=== PATIENT | male | born 1955 | race African-American/Black ===

== ENCOUNTER 2016-11-15 10:59 | Inpatient (IN) | payer OTHER ==
[2016-11-15 12:44] VITALS: BMI 22.2
--- NOTE | 2016-11-15 15:21 | HP ---
Admission ROS [facility] Chief Complaint: REHAB TX FOR ALCOHOL DEPENDENCE. PT STATES DSS INSTRUCTED HIM TO SEEK DETOX BECAUSE HE TESTED POSITIVE FOR DRUGS --"MY URINE CAME UP DIRTY". Allergies/Adverse Reactions: Allergies Allergy/AdvReac Type Severity Reaction Status Date / Time No Known Allergies Allergy Verified 11/15/16 13:13 History of Present Illness: 61 Y/O AA/MALE WITH A HX OF ALCOHOL DEPENDENCE SEEKING REHAB TX. PT REPORTS WAS IN NURSING HOME AT [facility] BUT DEVELOPED PNUEMONIA AND TAKEN TO THE [facility] FOR TREATMENT FOR 4 WEEKS. REPORTS WAS DISCHARGED 2 WEEKS AGO. PT STATES HOMELESS AND RESIDES AT [facility]. Exam Limitations: No Limitations - Ebola screening Have you traveled outside of the country in the last 21 days: No Have you had contact with anyone from an Ebola affected area: No Have you been sick,other than usual withdrawal symptoms: No Do you have a fever: No - Review of Systems Constitutional: Changes in sleep EENT: reports: Blurred Vision (NO TEETH WITH NO DENTURES IN PLACE.), Tearing, Nose Congestion (SINUS PROBLEMS) Respiratory: reports: Shortness of Breath (HX BRONCHITIS--"THEY GIVE ME THE PUMP ".) Cardiac: reports: No Symptoms Reported GI: reports: Nausea, Other (HX BLEEDING HEMORRHOIDS) : reports: Dysuria Musculoskeletal: reports: Other (LEFT SHOULDER FX 10 YRS AGO) Integumentary: reports: Rash ("JOCK ITCH") Neuro: reports: Headache, Tremors Endocrine: reports: No Symptoms Reported Hematology: reports: No Symptoms Reported Psychiatric: reports: Orientated x3, Anxious, Depressed Other Systems: Reviewed and Negative Patient History - Patient Medical History Hx Anemia: No Hx Asthma: Yes (MDI) Hx Chronic Obstructive Pulmonary Disease (COPD): No Hx Cancer: No Hx Cardiac Disorders: No Hx Congestive Heart Failure: No Hx Hypertension: Yes (ON MEDS) Hx Hypercholesterolemia: Yes (ON ATORVASTATIN 40 MG DAILY) Hx Pacemaker: No HX Cerebrovascular Accident: No Hx Seizures: No Hx Dementia: No Hx Diabetes: No Hx Gastrointestinal Disorders: Yes (GERD-RANITIDINE ) Hx Liver Disease: No Hx Genitourinary Disorders: No Hx Sexually Transmitted Disorders: No (DENIES) Hx Renal Disease (ESRD): No Hx Thyroid Disease: No Hx Human Immunodeficiency Virus (HIV): No (NEGATIVE HX) Hx Hepatitis C: No Hx Depression: No Hx Suicide Attempt: No (DENIES) Hx Bipolar Disorder: No Hx Schizophrenia: No - Patient Surgical History Past Surgical History: Yes Hx Neurologic Surgery: No Hx Cataract Extraction: No Hx Cardiac Surgery: No Hx Lung Surgery: No Hx Breast Surgery: No Hx Breast Biopsy: No Hx Abdominal Surgery: No Hx Appendectomy: No Hx Cholecystectomy: No Hx Genitourinary Surgery: No Hx Orthopedic Surgery: Yes (Dislocation of lt. shoulder) Anesthesia Reaction: No - PPD History Previous Implant?: Yes Documented Results: Negative w/o proof Date: 09/26/13 Results: 0 mm PPD to be Administered?: Yes - Reproductive History Patient is a Female of Child Bearing Age (11 -55 yrs old): No (MALE) Patient : (N/A) - Smoking Cessation Smoking history: Former smoker Have you smoked in the past 12 months: No If you are a former smoker, when did you quit?: "10 YRS AGO WHEN I DID SHOULDER SX" Hx Chewing Tobacco Use: No Initiated information on smoking cessation: No - Substance & Tx. History Hx Alcohol Use: Yes (BEER) Hx Substance Use: Yes (COCAINE/MARIJUANA) Substance Use Type: Alcohol, Cocaine, Marijuana Hx Substance Use Treatment: Yes (BUT DOES NOT REMEMBER LAST PLACE) - Substances Abused Alcohol-beer Route: Oral Frequency: 1-2 times per week Amount used: 1-2 (12 oz.) Age of first use: 14 Date of Last Use: 11/15/16 Family Disease History - Family Disease History Family Disease History: Other: Father (), Mother () Admission Physical Exam [facility] - Vital Signs Vital Signs: Vital Signs - 24 hr 11/15/16 12:34 Temperature 95.4 F L Pulse Rate 57 L Respiratory 20 Rate Blood Pressure 119/72 - Physical General Appearance: Yes: No Apparent Distress, Other HEENTM: Yes: EOMI, Normocephalic, KAREL, Pharynx Normal, Photophobia, Nasal Congestion, Rhinorrhea Respiratory: Yes: Chest Non-Tender, Lungs Clear, Normal Breath Sounds, No Respiratory Distress Neck: Yes: No masses,lesions,Nodules, Supple, Trachea in good position Breast: Yes: Breast Exam Deferred Cardiology: Yes: Regular Rhythm, S1, S2, Bradycardia Abdominal: Yes: Normal Bowel Sounds, Non Tender, Soft Genitourinary: Yes: Other (N/C) Back: Yes: Within Normal Limits Musculoskeletal: Yes: full range of Motion, Gait Steady Extremities: Yes: Normal Range of Motion, Non-Tender Neurological: Yes: clinical trial leader II-XII NML intact, Fully Oriented, Alert Integumentary: Yes: Dry, Warm Lymphatic: Yes: Within Normal Limits - Diagnostic (1) Nicotine dependence Current Visit: Yes Status: Acute Qualifiers: Nicotine product type: cigarettes Substance use status: in withdrawal Qualified Code(s): F17.213 - Nicotine dependence, cigarettes, with withdrawal (2) Alcohol dependence with uncomplicated withdrawal Current Visit: Yes Status: Chronic (3) Cocaine dependence, uncomplicated Current Visit: Yes Status: Chronic (4) Cannabis dependence, uncomplicated Current Visit: Yes Status: Chronic (5) Hypertension Current Visit: Yes Status: Chronic Qualifiers: Hypertension type: essential hypertension Qualified Code(s): I10 - Essential (primary) hypertension (6) Asthma Current Visit: Yes Status: Chronic Qualifiers: Asthma severity: mild intermittent Asthma complication type: uncomplicated Qualified Code(s): J45.20 - Mild intermittent asthma, uncomplicated (7) GERD (gastroesophageal reflux disease) Current Visit: Yes Status: Chronic Qualifiers: Esophagitis presence: without esophagitis Qualified Code(s): K21.9 - Gastro-esophageal reflux disease without esophagitis Cleared for Admission [facility] - Detox or Rehab Claeared for Rehab Admission: Yes [facility] Breath Alcohol Content Breath Alcohol Content: 0.008 Urine Drug Screen - Results Drug Screen Negative: No Urine Drug Screen Results: THC-Marijuana, KIMBERLY-Cocaine, MET-Methamphetamine
[2016-11-15] MEDS ORDERED: MAGNESIUM CITRATE 300 ML BOTTLE PO PRN (15:57)
[2016-11-15] MEDS ORDERED: LOPERAMIDE HCL 2 MG CAPSULE PO PRN (15:57)
[2016-11-15] MEDS ORDERED: ALBUTEROL SO4 18 GM HFA INHALER IH PRN (15:59)
[2016-11-15] MEDS ORDERED: TUBERCULIN PPD 5 TU/0.1ML VIAL ID ONE (19:45)
[2016-11-15 21:03] LABS: URINE APPEARANCE CLEAR; URINE BILIRUBIN NEGATIVE (NEGATIVE); URINE BLOOD NEGATIVE (NEGATIVE); URINE COLOR LTYELLOW; URINE GLUCOSE (UA) NEGATIVE (NEGATIVE); URINE KETONE NEGATIVE (NEGATIVE); URINE LEUK ESTERASE NEGATIVE (NEGATIVE); URINE NITRITE NEGATIVE (NEGATIVE); URINE PROTEIN NEGATIVE (NEGATIVE); URINE UROBILINOGEN NEGATIVE mg/dL (0.2-1.0)
[2016-11-15] MEDS: guaiFENesin/D-METHORPHAN HB 10 ML UNIT-DOSE CUPS PO PRN (21:05)
[2016-11-15] MEDS: THIAMINE HCL 100 MG TABLET (FP) PO SCH (21:05)
[2016-11-15] MEDS: IBUPROFEN 400 MG TABLET (FP) PO PRN (21:06)
[2016-11-15] MEDS: TOLNAFTATE 1% CREAM 15 GM TUBE TP SCH (21:09)
[2016-11-15] MEDS: CARVEDILOL 12.5 MG TABLET (FP) PO SCH (21:09)
[2016-11-15] MEDS: HYDROCORTISONE 2.5% TOPICAL CREAM 30 GM TUBE TP SCH (21:09)
[2016-11-15] MEDS ORDERED: CARVEDILOL PO SCH (22:00)
[2016-11-15] MEDS ORDERED: ATORVASTATIN CA 40 MG TABLET (FP) PO SCH (22:00)
[2016-11-16] MEDS ORDERED: LORATADINE PO SCH (10:00)
[2016-11-16] MEDS ORDERED: HYDROCHLOROTHIAZIDE 12.5 MG CAPSULE (FP) PO SCH (10:00)
[2016-11-16] MEDS ORDERED: LORATADINE 10 MG TABLET PO SCH (10:00)
[2016-11-16] MEDS ORDERED: LISINOPRIL 5 MG PO SCH (10:00)
[2016-11-16] MEDS ORDERED: HYDROCHLOROTHIAZIDE PO SCH (10:00)
[2016-11-16] MEDS ORDERED: ASPIRIN 81 MG CHEWABLE TABLETS PO SCH (10:00)
[2016-11-16] MEDS ORDERED: LISINOPRIL 5 MG TABLET (FP) PO SCH (10:00)
[2016-11-16] MEDS: PRENATAL VITAMINS W/ FOLIC ACID TABLET (FP) PO SCH (10:15)
[2016-11-16] MEDS: HYDROCORTISONE 2.5% TOPICAL CREAM 30 GM TUBE TP SCH ×2 (10:16→22:35)
[2016-11-16] MEDS: TOLNAFTATE 1% CREAM 15 GM TUBE TP SCH ×2 (10:17→22:19)
[2016-11-16] MEDS: guaiFENesin/D-METHORPHAN HB 10 ML UNIT-DOSE CUPS PO PRN ×2 (10:20→22:25)
[2016-11-16] MEDS: MAG HYDROX/AL HYDROX/SIMETH 30 ML UNIT-DOSE CUP PO PRN ×2 (10:40→22:25)
[2016-11-16] MEDS: CARVEDILOL 12.5 MG TABLET (FP) PO SCH ×2 (11:00→22:15)
[2016-11-16] MEDS ORDERED: FLUOCINONIDE 0.05% CREAM (15 GM TUBE) TP SCH (14:00)
--- NOTE | 2016-11-16 15:12 | HP ---
Psychiatrist Admission - Data Date of interview: 11/16/16 Admission source: [facility] Identifying data: This is his first admission to [address] [place] [address] for this 61 years old AA single father of 1 grown daughter, undomiciled,supported by PA. Medical History: GERD,BA,HTN. Psychiatric History: denies Physical/Sexual Abuse/Trauma History: denies Vital Signs: Vital Signs - 24 hr 11/15/16 11/16/16 11/16/16 20:45 00:30 03:30 Temperature 99.3 F Pulse Rate 66 Respiratory 18 18 18 Rate Blood Pressure 127/75 11/16/16 11/16/16 07:00 10:15 Temperature 98.3 F Pulse Rate 67 71 Respiratory 18 Rate Blood Pressure 151/79 142/78 Allergies/Adverse Reactions: Allergies Allergy/AdvReac Type Severity Reaction Status Date / Time No Known Allergies Allergy Verified 11/15/16 13:13 Date of last physical exam: 11/15/16 Concur with the findings of this exam: Yes - Substance Abuse/Tx History Hx Alcohol Use: Yes (reports drinking since 22 yo,beer couple of bottles) Hx Substance Use: Yes (marijuana on and off since HS"just to help me to eat") Substance Use Type: Alcohol, Marijuana Hx Substance Use Treatment: Yes (1 year of inpatient in [facility] last year) - Admission Criteria Previous failed treatment: Yes Poor recovery environment: Yes Comorbidities: Yes Lacks judgement: Yes Mental Status Exam - Mental Status Exam Alert and Oriented to: Time, Place, Person Cognitive Function: Grossly Intact Patient Appearance: Unkempt Mood: Irritable Affect: Appropriate, Mood Congruent Patient Behavior: Cooperative Speech Pattern: Clear Voice Loudness: Normal Thought Process: Goal Oriented Thought Disorder: Not Present Hallucinations: Denies Suicidal Ideation: Denies Homicidal Ideation: Denies Insight/Judgement: Fair Sleep: Fair Appetite: Good Muscle strength/Tone: Normal Gait/Station: Normal Psychiatric Findings - Problem List (Ary 1, 2,3) (1) Nicotine dependence Current Visit: Yes Status: Chronic Qualifiers: Nicotine product type: cigarettes Substance use status: in withdrawal Qualified Code(s): F17.213 - Nicotine dependence, cigarettes, with withdrawal (2) Asthma Current Visit: Yes Status: Chronic Qualifiers: Asthma severity: mild intermittent Asthma complication type: uncomplicated Qualified Code(s): J45.20 - Mild intermittent asthma, uncomplicated (3) GERD (gastroesophageal reflux disease) Current Visit: Yes Status: Chronic Qualifiers: Esophagitis presence: without esophagitis Qualified Code(s): K21.9 - Gastro-esophageal reflux disease without esophagitis (4) Hypertension Current Visit: Yes Status: Chronic Qualifiers: Hypertension type: essential hypertension Qualified Code(s): I10 - Essential (primary) hypertension (5) Substance induced mood disorder Current Visit: Yes Status: Chronic (6) Alcohol dependence Current Visit: Yes Status: Chronic (7) Cocaine dependence Current Visit: Yes Status: Chronic (8) Cannabis dependence Current Visit: Yes Status: Chronic - Initial Treatment Plan Initial Treatment Plan: Will monitor progress.
[2016-11-16 15:33] LABS: MCH 24.2 pg (25.7-33.7); MCHC 32.4 g/dl (32.0-35.9); MEAN CELL VOLUME 74.7 fl (80-96); MEAN PLT VOLUME 8.4 fl (7.5-11.1); PLATELET COUNT 240 K/MM3 (134-434); RDW 15.4 % (11.9-15.9); WHITE BLOOD COUNT 3.4 K/mm3 (4.0-10.0)
[2016-11-16 16:04] LABS: ALBUMIN 4.1 g/dl (3.4-5.0); ANION GAP 7 (8-16); CALCIUM 8.9 mg/dL (8.5-10.1); CO2 30 mmol/L (21-32); GLUCOSE,RANDOM 132 mg/dL (74-106)
[2016-11-16 16:09] LABS: ALK PHOS 52 U/L (45-117); BILIRUBIN,TOTAL 1.2 mg/dL (0.2-1.0); CREATININE 1.2 mg/dL (0.7-1.3); SGOT/AST 27 U/L (15-37); SGPT/ALT 38 U/L (12-78); TOT PROT 7.5 g/dl (6.4-8.2)
[2016-11-16 16:55] LABS: SICKLE CELL SCREEN NEGATIVE (NEGATIVE)
[2016-11-16] MEDS ORDERED: PATIENT'S OWN MEDICATION (NON-FORMULARY) (Atorvastatin Ca [Lipitor] 40 MG) PO SCH (22:00)
[2016-11-16] MEDS: THIAMINE HCL 100 MG TABLET (FP) PO SCH (22:15)
[2016-11-16] MEDS: ARTIFICIAL TEARS (POLYVINYL ALCOHOL 1.4%) OPTH DROPS OU SCH (22:15)
[2016-11-16] MEDS: RANITIDINE HCL 150 MG TABLET (FP) PO SCH (22:15)
[2016-11-16] MEDS: ATORVASTATIN CA 40 MG TABLET (FP) PO SCH (22:16)
[2016-11-16] MEDS: diphenhydrAMINE HCL 50 MG CAPSULE PO PRN (22:17)
[2016-11-16] MEDS: IBUPROFEN 400 MG TABLET (FP) PO PRN (22:18)
[2016-11-17] MEDS: SPIRONOLACTONE 25 MG TABLET (FP) PO SCH (10:18)
[2016-11-17] MEDS: ASPIRIN COATED 81 MG TABLET.EC PO SCH (10:18)
[2016-11-17] MEDS: RANITIDINE HCL 150 MG TABLET (FP) PO SCH ×2 (10:18→21:32)
[2016-11-17] MEDS: ARTIFICIAL TEARS (POLYVINYL ALCOHOL 1.4%) OPTH DROPS OU SCH ×2 (10:18→21:32)
[2016-11-17] MEDS: HYDROCHLOROTHIAZIDE 12.5 MG CAPSULE (FP) PO SCH (10:18)
[2016-11-17] MEDS: CARVEDILOL 12.5 MG TABLET (FP) PO SCH ×2 (10:18→21:32)
[2016-11-17] MEDS: LORATADINE 10 MG TABLET PO SCH (10:18)
[2016-11-17] MEDS: HYDROCORTISONE 2.5% TOPICAL CREAM 30 GM TUBE TP SCH ×2 (10:19→21:36)
[2016-11-17] MEDS: LISINOPRIL 5 MG TABLET (FP) PO SCH (10:19)
[2016-11-17] MEDS: PRENATAL VITAMINS W/ FOLIC ACID TABLET (FP) PO SCH (10:19)
[2016-11-17] MEDS: TOLNAFTATE 1% CREAM 15 GM TUBE TP SCH ×2 (10:19→21:35)
[2016-11-17] MEDS: guaiFENesin/D-METHORPHAN HB 10 ML UNIT-DOSE CUPS PO PRN ×2 (10:22→21:31)
[2016-11-17] MEDS: ACETAMINOPHEN 325 MG TABLET (FP) PO PRN (10:22)
[2016-11-17] MEDS: IBUPROFEN 400 MG TABLET (FP) PO PRN (21:31)
[2016-11-17] MEDS: THIAMINE HCL 100 MG TABLET (FP) PO SCH (21:31)
[2016-11-17] MEDS: diphenhydrAMINE HCL 50 MG CAPSULE PO PRN ×2 (21:32→23:55)
[2016-11-17] MEDS: ATORVASTATIN CA 40 MG TABLET (FP) PO SCH (21:32)
[2016-11-17] MEDS: MAG HYDROX/AL HYDROX/SIMETH 30 ML UNIT-DOSE CUP PO PRN (21:34)
[2016-11-18] MEDS: PRENATAL VITAMINS W/ FOLIC ACID TABLET (FP) PO SCH (10:40)
[2016-11-18] MEDS: CARVEDILOL 12.5 MG TABLET (FP) PO SCH ×2 (10:40→21:47)
[2016-11-18] MEDS: RANITIDINE HCL 150 MG TABLET (FP) PO SCH ×2 (10:40→21:47)
[2016-11-18] MEDS: LORATADINE 10 MG TABLET PO SCH (10:41)
[2016-11-18] MEDS: SPIRONOLACTONE 25 MG TABLET (FP) PO SCH (10:41)
[2016-11-18] MEDS: ASPIRIN COATED 81 MG TABLET.EC PO SCH (10:41)
[2016-11-18] MEDS: ARTIFICIAL TEARS (POLYVINYL ALCOHOL 1.4%) OPTH DROPS OU SCH ×2 (10:41→21:48)
[2016-11-18] MEDS: LISINOPRIL 5 MG TABLET (FP) PO SCH (10:41)
[2016-11-18] MEDS: HYDROCHLOROTHIAZIDE 12.5 MG CAPSULE (FP) PO SCH (10:41)
[2016-11-18] MEDS: IBUPROFEN 400 MG TABLET (FP) PO PRN ×2 (10:43→21:51)
[2016-11-18] MEDS: guaiFENesin/D-METHORPHAN HB 10 ML UNIT-DOSE CUPS PO PRN (10:44)
[2016-11-18] MEDS: MAG HYDROX/AL HYDROX/SIMETH 30 ML UNIT-DOSE CUP PO PRN (10:46)
[2016-11-18] MEDS: MENTHOL/PHENOL 1 EACH UD MM PRN (10:47)
[2016-11-18] MEDS: HYDROCORTISONE 2.5% TOPICAL CREAM 30 GM TUBE TP SCH ×2 (10:47→21:51)
[2016-11-18] MEDS: TOLNAFTATE 1% CREAM 15 GM TUBE TP SCH ×2 (10:47→23:10)
--- NOTE | 2016-11-18 11:36 | EKG ---
Test Reason : Blood Pressure : / mmHG Vent. Rate : 057 BPM Atrial Rate : 057 BPM P-R Int : 200 ms QRS Dur : 156 ms QT Int : 460 ms P-R-T Axes : 077 -53 011 degrees QTc Int : 447 ms SINUS BRADYCARDIA POSSIBLE LEFT ATRIAL ENLARGEMENT LEFT BUNDLE BRANCH BLOCK ABNORMAL ECG NO PREVIOUS ECGS AVAILABLE Confirmed by CRUZ GOTTI, EMILI ([id number]) on 11/18/2016 11:36:11 AM Referred By: Festus Barth Confirmed By:EMILI ARROYO MD
[2016-11-18] MEDS: ATORVASTATIN CA 40 MG TABLET (FP) PO SCH (21:47)
[2016-11-18] MEDS: THIAMINE HCL 100 MG TABLET (FP) PO SCH (21:47)
[2016-11-18] MEDS: MAGNESIUM HYDROX 2400MG/30ML ORAL SUSPENSION 30 ML CUP PO PRN (21:49)
[2016-11-18] MEDS: diphenhydrAMINE HCL 50 MG CAPSULE PO PRN (21:50)
[2016-11-19] MEDS: LISINOPRIL 5 MG TABLET (FP) PO SCH (10:13)
[2016-11-19] MEDS: RANITIDINE HCL 150 MG TABLET (FP) PO SCH ×2 (10:13→21:52)
[2016-11-19] MEDS: TOLNAFTATE 1% CREAM 15 GM TUBE TP SCH ×2 (10:13→21:50)
[2016-11-19] MEDS: ASPIRIN COATED 81 MG TABLET.EC PO SCH (10:13)
[2016-11-19] MEDS: PRENATAL VITAMINS W/ FOLIC ACID TABLET (FP) PO SCH (10:13)
[2016-11-19] MEDS: SPIRONOLACTONE 25 MG TABLET (FP) PO SCH (10:13)
[2016-11-19] MEDS: ARTIFICIAL TEARS (POLYVINYL ALCOHOL 1.4%) OPTH DROPS OU SCH ×2 (10:14→21:51)
[2016-11-19] MEDS: LORATADINE 10 MG TABLET PO SCH (10:14)
[2016-11-19] MEDS: CARVEDILOL 12.5 MG TABLET (FP) PO SCH ×2 (10:14→21:50)
[2016-11-19] MEDS: HYDROCHLOROTHIAZIDE 12.5 MG CAPSULE (FP) PO SCH (10:14)
[2016-11-19] MEDS: HYDROCORTISONE 2.5% TOPICAL CREAM 30 GM TUBE TP SCH ×2 (10:15→21:50)
[2016-11-19] MEDS: guaiFENesin/D-METHORPHAN HB 10 ML UNIT-DOSE CUPS PO PRN (10:18)
[2016-11-19] MEDS: MAG HYDROX/AL HYDROX/SIMETH 30 ML UNIT-DOSE CUP PO PRN (10:20)
[2016-11-19] MEDS: MENTHOL/PHENOL 1 EACH UD MM PRN (10:20)
[2016-11-19] MEDS: IBUPROFEN 400 MG TABLET (FP) PO PRN (21:49)
[2016-11-19] MEDS: ATORVASTATIN CA 40 MG TABLET (FP) PO SCH (21:50)
[2016-11-19] MEDS: diphenhydrAMINE HCL 50 MG CAPSULE PO PRN ×2 (21:51→23:51)
[2016-11-19] MEDS: THIAMINE HCL 100 MG TABLET (FP) PO SCH (21:52)
[2016-11-20] MEDS: IBUPROFEN 400 MG TABLET (FP) PO PRN ×2 (10:33→21:38)
[2016-11-20] MEDS: guaiFENesin/D-METHORPHAN HB 10 ML UNIT-DOSE CUPS PO PRN ×2 (10:33→21:37)
[2016-11-20] MEDS: MAG HYDROX/AL HYDROX/SIMETH 30 ML UNIT-DOSE CUP PO PRN ×2 (10:33→21:41)
[2016-11-20] MEDS: RANITIDINE HCL 150 MG TABLET (FP) PO SCH ×2 (10:34→21:38)
[2016-11-20] MEDS: PRENATAL VITAMINS W/ FOLIC ACID TABLET (FP) PO SCH (10:34)
[2016-11-20] MEDS: SPIRONOLACTONE 25 MG TABLET (FP) PO SCH (10:34)
[2016-11-20] MEDS: LISINOPRIL 5 MG TABLET (FP) PO SCH (10:34)
[2016-11-20] MEDS: HYDROCHLOROTHIAZIDE 12.5 MG CAPSULE (FP) PO SCH (10:34)
[2016-11-20] MEDS: ASPIRIN COATED 81 MG TABLET.EC PO SCH (10:34)
[2016-11-20] MEDS: LORATADINE 10 MG TABLET PO SCH (10:34)
[2016-11-20] MEDS: MENTHOL/PHENOL 1 EACH UD MM PRN (10:37)
[2016-11-20] MEDS: ARTIFICIAL TEARS (POLYVINYL ALCOHOL 1.4%) OPTH DROPS OU SCH ×2 (10:38→21:37)
[2016-11-20] MEDS: HYDROCORTISONE 2.5% TOPICAL CREAM 30 GM TUBE TP SCH ×2 (10:38→21:37)
[2016-11-20] MEDS: TOLNAFTATE 1% CREAM 15 GM TUBE TP SCH ×2 (10:39→21:45)
[2016-11-20] MEDS: CARVEDILOL 12.5 MG TABLET (FP) PO SCH ×2 (10:39→21:38)
[2016-11-20] MEDS: THIAMINE HCL 100 MG TABLET (FP) PO SCH (21:37)
[2016-11-20] MEDS: ATORVASTATIN CA 40 MG TABLET (FP) PO SCH (21:39)
[2016-11-20] MEDS: diphenhydrAMINE HCL 50 MG CAPSULE PO PRN ×2 (21:39→23:19)
[2016-11-21] MEDS: LISINOPRIL 5 MG TABLET (FP) PO SCH (09:52)
[2016-11-21] MEDS: ASPIRIN COATED 81 MG TABLET.EC PO SCH (09:52)
[2016-11-21] MEDS: LORATADINE 10 MG TABLET PO SCH (09:52)
[2016-11-21] MEDS: PRENATAL VITAMINS W/ FOLIC ACID TABLET (FP) PO SCH (09:52)
[2016-11-21] MEDS: RANITIDINE HCL 150 MG TABLET (FP) PO SCH ×2 (09:52→21:43)
[2016-11-21] MEDS: CARVEDILOL 12.5 MG TABLET (FP) PO SCH ×2 (09:52→21:42)
[2016-11-21] MEDS: MENTHOL/PHENOL 1 EACH UD MM PRN (09:53)
[2016-11-21] MEDS: guaiFENesin/D-METHORPHAN HB 10 ML UNIT-DOSE CUPS PO PRN ×2 (09:53→21:40)
[2016-11-21] MEDS: SPIRONOLACTONE 25 MG TABLET (FP) PO SCH (09:53)
[2016-11-21] MEDS: MAG HYDROX/AL HYDROX/SIMETH 30 ML UNIT-DOSE CUP PO PRN ×2 (09:53→21:42)
[2016-11-21] MEDS: HYDROCHLOROTHIAZIDE 12.5 MG CAPSULE (FP) PO SCH (09:53)
[2016-11-21] MEDS: ARTIFICIAL TEARS (POLYVINYL ALCOHOL 1.4%) OPTH DROPS OU SCH ×2 (10:40→21:40)
[2016-11-21] MEDS: HYDROCORTISONE 2.5% TOPICAL CREAM 30 GM TUBE TP SCH ×2 (10:41→21:39)
[2016-11-21] MEDS: TOLNAFTATE 1% CREAM 15 GM TUBE TP SCH ×2 (10:41→21:42)
[2016-11-21] MEDS: IBUPROFEN 400 MG TABLET (FP) PO PRN (21:42)
[2016-11-21] MEDS: ATORVASTATIN CA 40 MG TABLET (FP) PO SCH (21:42)
[2016-11-21] MEDS: THIAMINE HCL 100 MG TABLET (FP) PO SCH (21:43)
[2016-11-21] MEDS: diphenhydrAMINE HCL 50 MG CAPSULE PO PRN (21:43)
[2016-11-22] MEDS ORDERED: PT OWN MED DRAWER 7, Y5N ONE ×2 (08:44→14:18)
[2016-11-22] MEDS: LORATADINE 10 MG TABLET PO SCH (09:52)
[2016-11-22] MEDS: HYDROCHLOROTHIAZIDE 12.5 MG CAPSULE (FP) PO SCH (09:52)
[2016-11-22] MEDS: PRENATAL VITAMINS W/ FOLIC ACID TABLET (FP) PO SCH (09:52)
[2016-11-22] MEDS: LISINOPRIL 5 MG TABLET (FP) PO SCH (09:52)
[2016-11-22] MEDS: ASPIRIN COATED 81 MG TABLET.EC PO SCH (09:52)
[2016-11-22] MEDS: RANITIDINE HCL 150 MG TABLET (FP) PO SCH ×2 (09:52→21:24)
[2016-11-22] MEDS: ARTIFICIAL TEARS (POLYVINYL ALCOHOL 1.4%) OPTH DROPS OU SCH ×2 (09:53→21:24)
[2016-11-22] MEDS: SPIRONOLACTONE 25 MG TABLET (FP) PO SCH (09:53)
[2016-11-22] MEDS: TOLNAFTATE 1% CREAM 15 GM TUBE TP SCH ×2 (09:53→21:22)
[2016-11-22] MEDS: HYDROCORTISONE 2.5% TOPICAL CREAM 30 GM TUBE TP SCH ×2 (09:53→21:22)
[2016-11-22] MEDS: CARVEDILOL 12.5 MG TABLET (FP) PO SCH ×2 (09:53→21:24)
[2016-11-22] MEDS: ACETAMINOPHEN 325 MG TABLET (FP) PO PRN (09:56)
[2016-11-22] MEDS: MAG HYDROX/AL HYDROX/SIMETH 30 ML UNIT-DOSE CUP PO PRN (21:24)
[2016-11-22] MEDS: THIAMINE HCL 100 MG TABLET (FP) PO SCH (21:24)
[2016-11-22] MEDS: diphenhydrAMINE HCL 50 MG CAPSULE PO PRN ×2 (21:24→23:24)
[2016-11-22] MEDS: ATORVASTATIN CA 40 MG TABLET (FP) PO SCH (21:24)
[2016-11-22] MEDS: IBUPROFEN 400 MG TABLET (FP) PO PRN (21:24)
[2016-11-22] MEDS: guaiFENesin/D-METHORPHAN HB 10 ML UNIT-DOSE CUPS PO PRN (21:24)
[2016-11-22] MEDS: MENTHOL/PHENOL 1 EACH UD MM PRN (21:26)
[2016-11-22] MEDS: P-EPHED 60MG/TRIPROLIDI 2.5MG TABLET PO PRN (21:26)
[2016-11-23] MEDS: TOLNAFTATE 1% CREAM 15 GM TUBE TP SCH ×2 (10:24→21:25)
[2016-11-23] MEDS: PRENATAL VITAMINS W/ FOLIC ACID TABLET (FP) PO SCH (10:26)
[2016-11-23] MEDS: ARTIFICIAL TEARS (POLYVINYL ALCOHOL 1.4%) OPTH DROPS OU SCH ×2 (10:26→21:25)
[2016-11-23] MEDS: HYDROCORTISONE 2.5% TOPICAL CREAM 30 GM TUBE TP SCH ×2 (10:26→21:26)
[2016-11-23] MEDS: LORATADINE 10 MG TABLET PO SCH (10:27)
[2016-11-23] MEDS: RANITIDINE HCL 150 MG TABLET (FP) PO SCH ×2 (10:27→21:24)
[2016-11-23] MEDS: ASPIRIN COATED 81 MG TABLET.EC PO SCH (10:27)
[2016-11-23] MEDS: LISINOPRIL 5 MG TABLET (FP) PO SCH (10:27)
[2016-11-23] MEDS: HYDROCHLOROTHIAZIDE 12.5 MG CAPSULE (FP) PO SCH (10:27)
[2016-11-23] MEDS: CARVEDILOL 12.5 MG TABLET (FP) PO SCH ×2 (10:27→21:24)
[2016-11-23] MEDS: SPIRONOLACTONE 25 MG TABLET (FP) PO SCH (10:27)
[2016-11-23] MEDS: ACETAMINOPHEN 325 MG TABLET (FP) PO PRN (10:29)
[2016-11-23] MEDS: THIAMINE HCL 100 MG TABLET (FP) PO SCH (21:24)
[2016-11-23] MEDS: ATORVASTATIN CA 40 MG TABLET (FP) PO SCH (21:24)
[2016-11-23] MEDS: IBUPROFEN 400 MG TABLET (FP) PO PRN (21:27)
[2016-11-24] MEDS: HYDROCORTISONE 2.5% TOPICAL CREAM 30 GM TUBE TP SCH ×2 (09:43→21:24)
[2016-11-24] MEDS: TOLNAFTATE 1% CREAM 15 GM TUBE TP SCH ×2 (09:43→21:24)
[2016-11-24] MEDS: ARTIFICIAL TEARS (POLYVINYL ALCOHOL 1.4%) OPTH DROPS OU SCH ×2 (09:43→21:24)
[2016-11-24] MEDS: HYDROCHLOROTHIAZIDE 12.5 MG CAPSULE (FP) PO SCH (09:44)
[2016-11-24] MEDS: SPIRONOLACTONE 25 MG TABLET (FP) PO SCH (09:44)
[2016-11-24] MEDS: LISINOPRIL 5 MG TABLET (FP) PO SCH (09:44)
[2016-11-24] MEDS: RANITIDINE HCL 150 MG TABLET (FP) PO SCH ×2 (09:44→21:26)
[2016-11-24] MEDS: LORATADINE 10 MG TABLET PO SCH (09:44)
[2016-11-24] MEDS: CARVEDILOL 12.5 MG TABLET (FP) PO SCH ×2 (09:44→21:26)
[2016-11-24] MEDS: PRENATAL VITAMINS W/ FOLIC ACID TABLET (FP) PO SCH (09:44)
[2016-11-24] MEDS: ASPIRIN COATED 81 MG TABLET.EC PO SCH (09:44)
[2016-11-24] MEDS: ACETAMINOPHEN 325 MG TABLET (FP) PO PRN (09:46)
[2016-11-24] MEDS: diphenhydrAMINE HCL 50 MG CAPSULE PO PRN ×2 (20:23→23:54)
[2016-11-24] MEDS: THIAMINE HCL 100 MG TABLET (FP) PO SCH (21:24)
[2016-11-24] MEDS: MAG HYDROX/AL HYDROX/SIMETH 30 ML UNIT-DOSE CUP PO PRN (21:25)
[2016-11-24] MEDS: guaiFENesin/D-METHORPHAN HB 10 ML UNIT-DOSE CUPS PO PRN (21:25)
[2016-11-24] MEDS: ATORVASTATIN CA 40 MG TABLET (FP) PO SCH (21:26)
[2016-11-24] MEDS: IBUPROFEN 400 MG TABLET (FP) PO PRN (21:26)
[2016-11-25] MEDS: PRENATAL VITAMINS W/ FOLIC ACID TABLET (FP) PO SCH (09:56)
[2016-11-25] MEDS: HYDROCHLOROTHIAZIDE 12.5 MG CAPSULE (FP) PO SCH (09:56)
[2016-11-25] MEDS: LISINOPRIL 5 MG TABLET (FP) PO SCH (09:56)
[2016-11-25] MEDS: ASPIRIN COATED 81 MG TABLET.EC PO SCH (09:56)
[2016-11-25] MEDS: LORATADINE 10 MG TABLET PO SCH (09:56)
[2016-11-25] MEDS: SPIRONOLACTONE 25 MG TABLET (FP) PO SCH (09:56)
[2016-11-25] MEDS: RANITIDINE HCL 150 MG TABLET (FP) PO SCH ×2 (09:56→21:48)
[2016-11-25] MEDS: CARVEDILOL 12.5 MG TABLET (FP) PO SCH ×2 (09:57→21:48)
[2016-11-25] MEDS: ARTIFICIAL TEARS (POLYVINYL ALCOHOL 1.4%) OPTH DROPS OU SCH ×2 (09:58→21:48)
[2016-11-25] MEDS: HYDROCORTISONE 2.5% TOPICAL CREAM 30 GM TUBE TP SCH ×2 (09:58→21:48)
[2016-11-25] MEDS: IBUPROFEN 400 MG TABLET (FP) PO PRN (10:00)
[2016-11-25] MEDS: MAG HYDROX/AL HYDROX/SIMETH 30 ML UNIT-DOSE CUP PO PRN (10:00)
[2016-11-25] MEDS: guaiFENesin/D-METHORPHAN HB 10 ML UNIT-DOSE CUPS PO PRN (10:00)
[2016-11-25] MEDS: MENTHOL/PHENOL 1 EACH UD MM PRN (10:05)
[2016-11-25] MEDS: TOLNAFTATE 1% CREAM 15 GM TUBE TP SCH ×2 (10:21→21:51)
[2016-11-25] MEDS: ATORVASTATIN CA 40 MG TABLET (FP) PO SCH (21:48)
[2016-11-25] MEDS: THIAMINE HCL 100 MG TABLET (FP) PO SCH (21:48)
[2016-11-25] MEDS: diphenhydrAMINE HCL 50 MG CAPSULE PO PRN (21:51)
[2016-11-25] MEDS: ACETAMINOPHEN 325 MG TABLET (FP) PO PRN (21:52)
[2016-11-26] MEDS: SPIRONOLACTONE 25 MG TABLET (FP) PO SCH (10:00)
[2016-11-26] MEDS: RANITIDINE HCL 150 MG TABLET (FP) PO SCH ×2 (10:00→21:28)
[2016-11-26] MEDS: LORATADINE 10 MG TABLET PO SCH (10:00)
[2016-11-26] MEDS: CARVEDILOL 12.5 MG TABLET (FP) PO SCH ×2 (10:01→21:28)
[2016-11-26] MEDS: MENTHOL/PHENOL 1 EACH UD MM PRN ×2 (10:01→21:33)
[2016-11-26] MEDS: PRENATAL VITAMINS W/ FOLIC ACID TABLET (FP) PO SCH (10:01)
[2016-11-26] MEDS: ASPIRIN COATED 81 MG TABLET.EC PO SCH (10:01)
[2016-11-26] MEDS: HYDROCHLOROTHIAZIDE 12.5 MG CAPSULE (FP) PO SCH (10:01)
[2016-11-26] MEDS: IBUPROFEN 400 MG TABLET (FP) PO PRN ×2 (10:01→21:28)
[2016-11-26] MEDS: MAG HYDROX/AL HYDROX/SIMETH 30 ML UNIT-DOSE CUP PO PRN ×2 (10:01→21:27)
[2016-11-26] MEDS: guaiFENesin/D-METHORPHAN HB 10 ML UNIT-DOSE CUPS PO PRN ×2 (10:01→21:27)
[2016-11-26] MEDS: LISINOPRIL 5 MG TABLET (FP) PO SCH (10:01)
[2016-11-26] MEDS: ARTIFICIAL TEARS (POLYVINYL ALCOHOL 1.4%) OPTH DROPS OU SCH ×2 (10:04→21:27)
[2016-11-26] MEDS: TOLNAFTATE 1% CREAM 15 GM TUBE TP SCH ×2 (10:04→21:33)
[2016-11-26] MEDS: HYDROCORTISONE 2.5% TOPICAL CREAM 30 GM TUBE TP SCH ×2 (10:04→21:27)
[2016-11-26] MEDS: THIAMINE HCL 100 MG TABLET (FP) PO SCH (21:27)
[2016-11-26] MEDS: ATORVASTATIN CA 40 MG TABLET (FP) PO SCH (21:28)
[2016-11-26] MEDS: diphenhydrAMINE HCL 50 MG CAPSULE PO PRN ×2 (21:28→23:48)
[2016-11-26] MEDS: P-EPHED 60MG/TRIPROLIDI 2.5MG TABLET PO PRN (21:33)
[2016-11-27] MEDS: CARVEDILOL 12.5 MG TABLET (FP) PO SCH ×2 (09:55→21:56)
[2016-11-27] MEDS: HYDROCORTISONE 2.5% TOPICAL CREAM 30 GM TUBE TP SCH ×2 (09:55→21:57)
[2016-11-27] MEDS: SPIRONOLACTONE 25 MG TABLET (FP) PO SCH (09:55)
[2016-11-27] MEDS: ASPIRIN COATED 81 MG TABLET.EC PO SCH (09:55)
[2016-11-27] MEDS: ARTIFICIAL TEARS (POLYVINYL ALCOHOL 1.4%) OPTH DROPS OU SCH ×2 (09:55→21:56)
[2016-11-27] MEDS: HYDROCHLOROTHIAZIDE 12.5 MG CAPSULE (FP) PO SCH (09:55)
[2016-11-27] MEDS: TOLNAFTATE 1% CREAM 15 GM TUBE TP SCH ×2 (09:55→21:57)
[2016-11-27] MEDS: RANITIDINE HCL 150 MG TABLET (FP) PO SCH ×2 (09:55→21:56)
[2016-11-27] MEDS: LISINOPRIL 5 MG TABLET (FP) PO SCH (09:55)
[2016-11-27] MEDS: LORATADINE 10 MG TABLET PO SCH (09:55)
[2016-11-27] MEDS: ACETAMINOPHEN 325 MG TABLET (FP) PO PRN (09:56)
[2016-11-27] MEDS: PRENATAL VITAMINS W/ FOLIC ACID TABLET (FP) PO SCH (09:56)
[2016-11-27] MEDS: guaiFENesin/D-METHORPHAN HB 10 ML UNIT-DOSE CUPS PO PRN ×2 (09:56→22:01)
[2016-11-27] MEDS: MAG HYDROX/AL HYDROX/SIMETH 30 ML UNIT-DOSE CUP PO PRN ×2 (10:00→22:02)
[2016-11-27] MEDS: MENTHOL/PHENOL 1 EACH UD MM PRN ×2 (10:00→21:59)
[2016-11-27] MEDS: ATORVASTATIN CA 40 MG TABLET (FP) PO SCH (21:56)
[2016-11-27] MEDS: THIAMINE HCL 100 MG TABLET (FP) PO SCH (21:56)
[2016-11-27] MEDS: diphenhydrAMINE HCL 50 MG CAPSULE PO PRN (21:59)
[2016-11-27] MEDS: IBUPROFEN 400 MG TABLET (FP) PO PRN (21:59)
[2016-11-28] MEDS: diphenhydrAMINE HCL 50 MG CAPSULE PO PRN ×2 (00:19→21:52)
[2016-11-28] MEDS: HYDROCORTISONE 2.5% TOPICAL CREAM 30 GM TUBE TP SCH ×2 (10:02→21:49)
[2016-11-28] MEDS: LISINOPRIL 5 MG TABLET (FP) PO SCH (10:02)
[2016-11-28] MEDS: HYDROCHLOROTHIAZIDE 12.5 MG CAPSULE (FP) PO SCH (10:02)
[2016-11-28] MEDS: ARTIFICIAL TEARS (POLYVINYL ALCOHOL 1.4%) OPTH DROPS OU SCH ×2 (10:02→21:48)
[2016-11-28] MEDS: SPIRONOLACTONE 25 MG TABLET (FP) PO SCH (10:02)
[2016-11-28] MEDS: RANITIDINE HCL 150 MG TABLET (FP) PO SCH ×2 (10:02→21:48)
[2016-11-28] MEDS: TOLNAFTATE 1% CREAM 15 GM TUBE TP SCH ×2 (10:02→21:48)
[2016-11-28] MEDS: ASPIRIN COATED 81 MG TABLET.EC PO SCH (10:02)
[2016-11-28] MEDS: CARVEDILOL 12.5 MG TABLET (FP) PO SCH ×2 (10:02→21:48)
[2016-11-28] MEDS: PRENATAL VITAMINS W/ FOLIC ACID TABLET (FP) PO SCH (10:02)
[2016-11-28] MEDS: LORATADINE 10 MG TABLET PO SCH (10:02)
[2016-11-28] MEDS: MAG HYDROX/AL HYDROX/SIMETH 30 ML UNIT-DOSE CUP PO PRN ×2 (10:04→21:52)
[2016-11-28] MEDS: ACETAMINOPHEN 325 MG TABLET (FP) PO PRN (10:04)
[2016-11-28] MEDS: guaiFENesin/D-METHORPHAN HB 10 ML UNIT-DOSE CUPS PO PRN (10:05)
[2016-11-28] MEDS: MENTHOL/PHENOL 1 EACH UD MM PRN ×2 (10:07→21:53)
[2016-11-28] MEDS: THIAMINE HCL 100 MG TABLET (FP) PO SCH (21:48)
[2016-11-28] MEDS: ATORVASTATIN CA 40 MG TABLET (FP) PO SCH (21:48)
[2016-11-28] MEDS: P-EPHED 60MG/TRIPROLIDI 2.5MG TABLET PO PRN (21:51)
[2016-11-28] MEDS: IBUPROFEN 400 MG TABLET (FP) PO PRN (21:52)
[2016-11-29] MEDS: LISINOPRIL 5 MG TABLET (FP) PO SCH (10:10)
[2016-11-29] MEDS: HYDROCHLOROTHIAZIDE 12.5 MG CAPSULE (FP) PO SCH (10:11)
[2016-11-29] MEDS: LORATADINE 10 MG TABLET PO SCH (10:11)
[2016-11-29] MEDS: CARVEDILOL 12.5 MG TABLET (FP) PO SCH ×2 (10:11→21:41)
[2016-11-29] MEDS: RANITIDINE HCL 150 MG TABLET (FP) PO SCH ×2 (10:11→21:41)
[2016-11-29] MEDS: IBUPROFEN 400 MG TABLET (FP) PO PRN ×2 (10:11→21:40)
[2016-11-29] MEDS: PRENATAL VITAMINS W/ FOLIC ACID TABLET (FP) PO SCH (10:11)
[2016-11-29] MEDS: SPIRONOLACTONE 25 MG TABLET (FP) PO SCH (10:11)
[2016-11-29] MEDS: ASPIRIN COATED 81 MG TABLET.EC PO SCH (10:11)
[2016-11-29] MEDS: MAG HYDROX/AL HYDROX/SIMETH 30 ML UNIT-DOSE CUP PO PRN ×2 (10:12→21:40)
[2016-11-29] MEDS: ARTIFICIAL TEARS (POLYVINYL ALCOHOL 1.4%) OPTH DROPS OU SCH ×2 (10:12→21:39)
[2016-11-29] MEDS: MENTHOL/PHENOL 1 EACH UD MM PRN (10:12)
[2016-11-29] MEDS: guaiFENesin/D-METHORPHAN HB 10 ML UNIT-DOSE CUPS PO PRN ×2 (10:12→21:40)
[2016-11-29] MEDS: HYDROCORTISONE 2.5% TOPICAL CREAM 30 GM TUBE TP SCH ×2 (10:13→21:40)
[2016-11-29] MEDS: TOLNAFTATE 1% CREAM 15 GM TUBE TP SCH ×2 (10:13→21:40)
[2016-11-29] MEDS: THIAMINE HCL 100 MG TABLET (FP) PO SCH (21:39)
[2016-11-29] MEDS: diphenhydrAMINE HCL 50 MG CAPSULE PO PRN ×2 (21:41→23:50)
[2016-11-29] MEDS: ATORVASTATIN CA 40 MG TABLET (FP) PO SCH (21:41)
[2016-11-30] MEDS: MAG HYDROX/AL HYDROX/SIMETH 30 ML UNIT-DOSE CUP PO PRN ×2 (10:16→21:44)
[2016-11-30] MEDS: guaiFENesin/D-METHORPHAN HB 10 ML UNIT-DOSE CUPS PO PRN (10:16)
[2016-11-30] MEDS: ARTIFICIAL TEARS (POLYVINYL ALCOHOL 1.4%) OPTH DROPS OU SCH ×2 (10:16→21:43)
[2016-11-30] MEDS: LORATADINE 10 MG TABLET PO SCH (10:17)
[2016-11-30] MEDS: IBUPROFEN 400 MG TABLET (FP) PO PRN ×2 (10:17→21:47)
[2016-11-30] MEDS: RANITIDINE HCL 150 MG TABLET (FP) PO SCH ×2 (10:17→21:51)
[2016-11-30] MEDS: LISINOPRIL 5 MG TABLET (FP) PO SCH (10:17)
[2016-11-30] MEDS: PRENATAL VITAMINS W/ FOLIC ACID TABLET (FP) PO SCH (10:17)
[2016-11-30] MEDS: CARVEDILOL 12.5 MG TABLET (FP) PO SCH ×2 (10:17→21:47)
[2016-11-30] MEDS: HYDROCHLOROTHIAZIDE 12.5 MG CAPSULE (FP) PO SCH (10:17)
[2016-11-30] MEDS: SPIRONOLACTONE 25 MG TABLET (FP) PO SCH (10:17)
[2016-11-30] MEDS: ASPIRIN COATED 81 MG TABLET.EC PO SCH (10:17)
[2016-11-30] MEDS: HYDROCORTISONE 2.5% TOPICAL CREAM 30 GM TUBE TP SCH ×2 (10:20→21:45)
[2016-11-30] MEDS: TOLNAFTATE 1% CREAM 15 GM TUBE TP SCH ×2 (10:20→21:46)
[2016-11-30] MEDS: MENTHOL/PHENOL 1 EACH UD MM PRN ×2 (10:20→21:47)
[2016-11-30] MEDS: HYDROCORTISONE ACETATE 25 MG/SUPP.RECT RC SCH (21:45)
[2016-11-30] MEDS: P-EPHED 60MG/TRIPROLIDI 2.5MG TABLET PO PRN (21:46)
[2016-11-30] MEDS: diphenhydrAMINE HCL 50 MG CAPSULE PO PRN (21:46)
[2016-11-30] MEDS: ATORVASTATIN CA 40 MG TABLET (FP) PO SCH (21:47)
[2016-11-30] MEDS: THIAMINE HCL 100 MG TABLET (FP) PO SCH (21:51)
[2016-11-30] MEDS: TOLNAFTATE 1% POWDER 45 GM POW TP SCH (21:53)
[2016-12-01] MEDS: HYDROCHLOROTHIAZIDE 12.5 MG CAPSULE (FP) PO SCH (10:18)
[2016-12-01] MEDS: LISINOPRIL 5 MG TABLET (FP) PO SCH (10:18)
[2016-12-01] MEDS: CARVEDILOL 12.5 MG TABLET (FP) PO SCH ×2 (10:18→21:46)
[2016-12-01] MEDS: PRENATAL VITAMINS W/ FOLIC ACID TABLET (FP) PO SCH (10:18)
[2016-12-01] MEDS: ASPIRIN COATED 81 MG TABLET.EC PO SCH (10:18)
[2016-12-01] MEDS: SPIRONOLACTONE 25 MG TABLET (FP) PO SCH (10:18)
[2016-12-01] MEDS: RANITIDINE HCL 150 MG TABLET (FP) PO SCH ×2 (10:18→21:46)
[2016-12-01] MEDS: LORATADINE 10 MG TABLET PO SCH (10:18)
[2016-12-01] MEDS: MENTHOL/PHENOL 1 EACH UD MM PRN (10:19)
[2016-12-01] MEDS: guaiFENesin/D-METHORPHAN HB 10 ML UNIT-DOSE CUPS PO PRN ×2 (10:19→21:45)
[2016-12-01] MEDS: ARTIFICIAL TEARS (POLYVINYL ALCOHOL 1.4%) OPTH DROPS OU SCH ×2 (10:19→21:45)
[2016-12-01] MEDS: IBUPROFEN 400 MG TABLET (FP) PO PRN ×2 (10:19→21:45)
[2016-12-01] MEDS: MAG HYDROX/AL HYDROX/SIMETH 30 ML UNIT-DOSE CUP PO PRN ×2 (10:19→21:45)
[2016-12-01] MEDS: TOLNAFTATE 1% CREAM 15 GM TUBE TP SCH ×2 (10:22→21:44)
[2016-12-01] MEDS: TOLNAFTATE 1% POWDER 45 GM POW TP SCH ×2 (10:22→21:44)
[2016-12-01] MEDS: HYDROCORTISONE 2.5% TOPICAL CREAM 30 GM TUBE TP SCH ×2 (10:56→21:43)
[2016-12-01] MEDS: ATORVASTATIN CA 40 MG TABLET (FP) PO SCH (21:45)
[2016-12-01] MEDS: HYDROCORTISONE ACETATE 25 MG/SUPP.RECT RC SCH (21:45)
[2016-12-01] MEDS: diphenhydrAMINE HCL 50 MG CAPSULE PO PRN (21:47)
[2016-12-01] MEDS: THIAMINE HCL 100 MG TABLET (FP) PO SCH (21:50)
[2016-12-02] MEDS: LISINOPRIL 5 MG TABLET (FP) PO SCH (10:31)
[2016-12-02] MEDS: ASPIRIN COATED 81 MG TABLET.EC PO SCH (10:31)
[2016-12-02] MEDS: HYDROCHLOROTHIAZIDE 12.5 MG CAPSULE (FP) PO SCH (10:31)
[2016-12-02] MEDS: RANITIDINE HCL 150 MG TABLET (FP) PO SCH ×2 (10:31→21:39)
[2016-12-02] MEDS: LORATADINE 10 MG TABLET PO SCH (10:31)
[2016-12-02] MEDS: CARVEDILOL 12.5 MG TABLET (FP) PO SCH ×2 (10:31→21:39)
[2016-12-02] MEDS: SPIRONOLACTONE 25 MG TABLET (FP) PO SCH (10:31)
[2016-12-02] MEDS: IBUPROFEN 400 MG TABLET (FP) PO PRN (10:31)
[2016-12-02] MEDS: PRENATAL VITAMINS W/ FOLIC ACID TABLET (FP) PO SCH (10:32)
[2016-12-02] MEDS: TOLNAFTATE 1% POWDER 45 GM POW TP SCH ×2 (10:32→21:37)
[2016-12-02] MEDS: MAG HYDROX/AL HYDROX/SIMETH 30 ML UNIT-DOSE CUP PO PRN ×2 (10:33→22:39)
[2016-12-02] MEDS: guaiFENesin/D-METHORPHAN HB 10 ML UNIT-DOSE CUPS PO PRN ×2 (10:33→22:39)
[2016-12-02] MEDS: ARTIFICIAL TEARS (POLYVINYL ALCOHOL 1.4%) OPTH DROPS OU SCH ×2 (10:33→21:37)
[2016-12-02] MEDS: TOLNAFTATE 1% CREAM 15 GM TUBE TP SCH ×2 (10:36→21:42)
[2016-12-02] MEDS: HYDROCORTISONE 2.5% TOPICAL CREAM 30 GM TUBE TP SCH ×2 (10:36→21:36)
[2016-12-02] MEDS: THIAMINE HCL 100 MG TABLET (FP) PO SCH (21:39)
[2016-12-02] MEDS: HYDROCORTISONE ACETATE 25 MG/SUPP.RECT RC SCH (21:39)
[2016-12-02] MEDS: ATORVASTATIN CA 40 MG TABLET (FP) PO SCH (21:39)
[2016-12-02] MEDS: ACETAMINOPHEN 325 MG TABLET (FP) PO PRN (21:40)
[2016-12-02] MEDS: MENTHOL/PHENOL 1 EACH UD MM PRN (22:40)
[2016-12-03] MEDS ORDERED: PT OWN MED DRAWER 7, Y5N ONE ×4 (10:25→22:15)
[2016-12-03] MEDS: CARVEDILOL 12.5 MG TABLET (FP) PO SCH ×2 (10:26→22:00)
[2016-12-03] MEDS: PRENATAL VITAMINS W/ FOLIC ACID TABLET (FP) PO SCH (10:26)
[2016-12-03] MEDS: HYDROCHLOROTHIAZIDE 12.5 MG CAPSULE (FP) PO SCH (10:26)
[2016-12-03] MEDS: TOLNAFTATE 1% POWDER 45 GM POW TP SCH ×2 (10:26→22:00)
[2016-12-03] MEDS: SPIRONOLACTONE 25 MG TABLET (FP) PO SCH (10:26)
[2016-12-03] MEDS: ASPIRIN COATED 81 MG TABLET.EC PO SCH (10:26)
[2016-12-03] MEDS: LISINOPRIL 5 MG TABLET (FP) PO SCH (10:26)
[2016-12-03] MEDS: guaiFENesin/D-METHORPHAN HB 10 ML UNIT-DOSE CUPS PO PRN (10:26)
[2016-12-03] MEDS: RANITIDINE HCL 150 MG TABLET (FP) PO SCH ×2 (10:26→22:00)
[2016-12-03] MEDS: LORATADINE 10 MG TABLET PO SCH (10:26)
[2016-12-03] MEDS: MAG HYDROX/AL HYDROX/SIMETH 30 ML UNIT-DOSE CUP PO PRN ×2 (10:26→22:05)
[2016-12-03] MEDS: ARTIFICIAL TEARS (POLYVINYL ALCOHOL 1.4%) OPTH DROPS OU SCH ×2 (10:26→21:59)
[2016-12-03] MEDS: HYDROCORTISONE 2.5% TOPICAL CREAM 30 GM TUBE TP SCH ×2 (10:26→21:59)
[2016-12-03] MEDS: TOLNAFTATE 1% CREAM 15 GM TUBE TP SCH ×2 (10:27→21:59)
[2016-12-03] MEDS: ACETAMINOPHEN 325 MG TABLET (FP) PO PRN (10:27)
[2016-12-03] MEDS: ATORVASTATIN CA 40 MG TABLET (FP) PO SCH (22:00)
[2016-12-03] MEDS: HYDROCORTISONE ACETATE 25 MG/SUPP.RECT RC SCH (22:00)
[2016-12-03] MEDS: THIAMINE HCL 100 MG TABLET (FP) PO SCH (22:00)
[2016-12-03] MEDS: IBUPROFEN 400 MG TABLET (FP) PO PRN (22:05)
[2016-12-03] MEDS: diphenhydrAMINE HCL 50 MG CAPSULE PO PRN ×2 (22:07→23:57)
[2016-12-04] MEDS: CARVEDILOL 12.5 MG TABLET (FP) PO SCH ×2 (10:51→21:53)
[2016-12-04] MEDS: RANITIDINE HCL 150 MG TABLET (FP) PO SCH ×2 (10:51→21:54)
[2016-12-04] MEDS: LISINOPRIL 5 MG TABLET (FP) PO SCH (10:51)
[2016-12-04] MEDS: IBUPROFEN 400 MG TABLET (FP) PO PRN ×2 (10:51→21:54)
[2016-12-04] MEDS: PRENATAL VITAMINS W/ FOLIC ACID TABLET (FP) PO SCH (10:51)
[2016-12-04] MEDS: HYDROCHLOROTHIAZIDE 12.5 MG CAPSULE (FP) PO SCH (10:51)
[2016-12-04] MEDS: ASPIRIN COATED 81 MG TABLET.EC PO SCH (10:52)
[2016-12-04] MEDS: SPIRONOLACTONE 25 MG TABLET (FP) PO SCH (10:52)
[2016-12-04] MEDS: LORATADINE 10 MG TABLET PO SCH (10:52)
[2016-12-04] MEDS: HYDROCORTISONE 2.5% TOPICAL CREAM 30 GM TUBE TP SCH ×2 (10:53→21:53)
[2016-12-04] MEDS: ARTIFICIAL TEARS (POLYVINYL ALCOHOL 1.4%) OPTH DROPS OU SCH ×2 (10:53→21:58)
[2016-12-04] MEDS: TOLNAFTATE 1% CREAM 15 GM TUBE TP SCH ×2 (10:53→21:52)
[2016-12-04] MEDS ORDERED: PT OWN MED DRAWER 7, Y5N ONE (10:54)
[2016-12-04] MEDS: TOLNAFTATE 1% POWDER 45 GM POW TP SCH ×2 (10:54→21:52)
[2016-12-04] MEDS: MAG HYDROX/AL HYDROX/SIMETH 30 ML UNIT-DOSE CUP PO PRN ×2 (10:54→21:53)
[2016-12-04] MEDS: guaiFENesin/D-METHORPHAN HB 10 ML UNIT-DOSE CUPS PO PRN ×2 (10:54→21:53)
[2016-12-04] MEDS: P-EPHED 60MG/TRIPROLIDI 2.5MG TABLET PO PRN (21:53)
[2016-12-04] MEDS: THIAMINE HCL 100 MG TABLET (FP) PO SCH (21:53)
[2016-12-04] MEDS: diphenhydrAMINE HCL 50 MG CAPSULE PO PRN (21:53)
[2016-12-04] MEDS: ATORVASTATIN CA 40 MG TABLET (FP) PO SCH (21:54)
[2016-12-04] MEDS: HYDROCORTISONE ACETATE 25 MG/SUPP.RECT RC SCH (21:58)
[2016-12-05] MEDS ORDERED: PT OWN MED DRAWER 7, Y5N ONE ×2 (08:50→10:23)
[2016-12-05] MEDS: HYDROCHLOROTHIAZIDE 12.5 MG CAPSULE (FP) PO SCH (10:21)
[2016-12-05] MEDS: LISINOPRIL 5 MG TABLET (FP) PO SCH (10:21)
[2016-12-05] MEDS: PRENATAL VITAMINS W/ FOLIC ACID TABLET (FP) PO SCH (10:21)
[2016-12-05] MEDS: HYDROCORTISONE 2.5% TOPICAL CREAM 30 GM TUBE TP SCH ×2 (10:22→21:28)
[2016-12-05] MEDS: LORATADINE 10 MG TABLET PO SCH (10:22)
[2016-12-05] MEDS: SPIRONOLACTONE 25 MG TABLET (FP) PO SCH (10:22)
[2016-12-05] MEDS: TOLNAFTATE 1% CREAM 15 GM TUBE TP SCH ×2 (10:22→21:29)
[2016-12-05] MEDS: TOLNAFTATE 1% POWDER 45 GM POW TP SCH ×2 (10:22→21:29)
[2016-12-05] MEDS: guaiFENesin/D-METHORPHAN HB 10 ML UNIT-DOSE CUPS PO PRN ×2 (10:22→21:25)
[2016-12-05] MEDS: RANITIDINE HCL 150 MG TABLET (FP) PO SCH ×2 (10:22→21:26)
[2016-12-05] MEDS: CARVEDILOL 12.5 MG TABLET (FP) PO SCH ×2 (10:22→21:25)
[2016-12-05] MEDS: ACETAMINOPHEN 325 MG TABLET (FP) PO PRN (10:23)
[2016-12-05] MEDS: ASPIRIN COATED 81 MG TABLET.EC PO SCH (10:23)
[2016-12-05] MEDS: ARTIFICIAL TEARS (POLYVINYL ALCOHOL 1.4%) OPTH DROPS OU SCH ×2 (10:24→21:28)
[2016-12-05] MEDS: MAG HYDROX/AL HYDROX/SIMETH 30 ML UNIT-DOSE CUP PO PRN (21:25)
[2016-12-05] MEDS: diphenhydrAMINE HCL 50 MG CAPSULE PO PRN (21:25)
[2016-12-05] MEDS: THIAMINE HCL 100 MG TABLET (FP) PO SCH (21:25)
[2016-12-05] MEDS: ATORVASTATIN CA 40 MG TABLET (FP) PO SCH (21:26)
[2016-12-05] MEDS: IBUPROFEN 400 MG TABLET (FP) PO PRN (21:26)
[2016-12-05] MEDS: HYDROCORTISONE ACETATE 25 MG/SUPP.RECT RC SCH (21:28)
[2016-12-06] MEDS ORDERED: PT OWN MED DRAWER 7, Y5N ONE ×2 (08:55→20:46)
[2016-12-06] MEDS: TOLNAFTATE 1% CREAM 15 GM TUBE TP SCH ×2 (10:17→21:41)
[2016-12-06] MEDS: SPIRONOLACTONE 25 MG TABLET (FP) PO SCH (10:17)
[2016-12-06] MEDS: CARVEDILOL 12.5 MG TABLET (FP) PO SCH ×2 (10:17→21:44)
[2016-12-06] MEDS: HYDROCHLOROTHIAZIDE 12.5 MG CAPSULE (FP) PO SCH (10:17)
[2016-12-06] MEDS: RANITIDINE HCL 150 MG TABLET (FP) PO SCH ×2 (10:17→21:44)
[2016-12-06] MEDS: PRENATAL VITAMINS W/ FOLIC ACID TABLET (FP) PO SCH (10:17)
[2016-12-06] MEDS: ASPIRIN COATED 81 MG TABLET.EC PO SCH (10:17)
[2016-12-06] MEDS: LORATADINE 10 MG TABLET PO SCH (10:17)
[2016-12-06] MEDS: guaiFENesin/D-METHORPHAN HB 10 ML UNIT-DOSE CUPS PO PRN ×2 (10:17→21:42)
[2016-12-06] MEDS: ARTIFICIAL TEARS (POLYVINYL ALCOHOL 1.4%) OPTH DROPS OU SCH ×2 (10:17→21:42)
[2016-12-06] MEDS: LISINOPRIL 5 MG TABLET (FP) PO SCH (10:17)
[2016-12-06] MEDS: ACETAMINOPHEN 325 MG TABLET (FP) PO PRN (10:18)
[2016-12-06] MEDS: TOLNAFTATE 1% POWDER 45 GM POW TP SCH ×2 (10:18→21:42)
[2016-12-06] MEDS: HYDROCORTISONE 2.5% TOPICAL CREAM 30 GM TUBE TP SCH ×2 (10:18→21:41)
--- NOTE | 2016-12-06 10:37 | PN ---
Psychiatric Progress Note Vital Signs: Vital Signs Period Temp Pulse Resp BP Sys/Fontenot Pulse Ox Last 24 Hr 98.4 F 61-66 16-18 116-130/64-82 Date of Session: 12/06/16 Chief Complaint:: Insomnia HPI: Patient addressing Alcohol, Cocaine and Cannabis Dependence comorbid with Nicotine Dependence and Substance-Induced Mood Disorder ROS: Asthma, GERD, HTN Current Medications: Active Medications Generic Name Dose Route Start Last Admin Trade Name Freq PRN Reason Stop Dose Admin Acetaminophen 650 mg 11/15/16 15:57 12/06/16 10:18 Tylenol - PO 650 mg Q4H PRN Administration PAIN Al Hydroxide/Mg Hydroxide 30 ml 11/15/16 15:57 12/05/16 21:25 Mylanta Oral Suspension - PO 30 ml Q6H PRN Administration DYSPEPSIA Albuterol Sulfate 2 puff 11/15/16 15:59 Ventolin Hfa Inhaler - IH Q4H PRN ASTHMA Artificial Tears 1 drop 11/16/16 22:00 12/06/16 10:17 Artificial Tears OU Not Given BID MENDEZ Aspirin 81 mg 11/16/16 14:39 12/06/16 10:17 Ecotrin - PO 81 mg DAILY MENDEZ Administration Atorvastatin Calcium 40 mg 11/16/16 14:38 12/05/16 21:26 Lipitor - PO 40 mg HS MENDEZ Administration Carvedilol 12.5 mg 11/16/16 14:35 12/06/16 10:17 Coreg - PO 12.5 mg BID MENDEZ Administration Diphenhydramine HCl 50 mg 11/15/16 15:57 12/05/16 21:25 Benadryl - PO 50 mg HSMR1 PRN Administration INSOMNIA Eucalyptus/Menthol/Phenol/Sorbitol 1 each 11/15/16 15:57 12/02/16 22:40 Cepastat Lozenge - MM 1 each Q4H PRN Administration SORE THROAT Guaifenesin 10 ml 11/15/16 15:57 12/06/16 10:17 Robitussin Dm - PO 10 ml Q6H PRN Administration COUGH Hydrochlorothiazide 12.5 mg 11/16/16 14:33 12/06/16 10:17 Hctz - PO 12.5 mg DAILY MENDEZ Administration Hydrocortisone 1 applic 11/15/16 22:00 12/06/16 10:18 Anusol 2.5% Hc Cream - TP Not Given BID MENDEZ Hydrocortisone Acetate 25 mg 11/30/16 22:00 12/05/16 21:28 Anusol Hc Suppository - RC 25 mg HS MENDEZ Administration Ibuprofen 400 mg 11/15/16 15:57 12/05/16 21:26 Motrin - PO 400 mg Q6H PRN Administration SEVERE PAIN Lisinopril 5 mg 11/16/16 14:34 12/06/16 10:17 Prinivil PO 5 mg DAILY MENDEZ Administration Loperamide HCl 4 mg 11/15/16 15:57 Imodium - PO Q6H PRN DIARRHEA Loratadine 10 mg 11/16/16 14:36 12/06/16 10:17 Claritin - PO 10 mg DAILY MENDEZ Administration Magnesium Citrate 300 ml 11/15/16 15:57 Citroma - PO Q48H PRN CONSTIPATION Magnesium Hydroxide 30 ml 11/15/16 15:57 11/18/16 21:49 Milk Of Magnesia - PO 30 ml DAILY PRN Administration CONSTIPATION Multivit/Folic Acid/Iron 1 tab 11/16/16 10:00 12/06/16 10:17 Vitamins (Sjr) - PO 1 tab DAILY MENDEZ Administration Pseudoephedrine/Triprolidine 1 combo 11/15/16 15:57 12/04/16 21:53 Actifed - PO 1 combo TID PRN Administration NASAL CONGESTION Ranitidine HCl 150 mg 11/16/16 22:00 12/06/16 10:17 Zantac - PO 150 mg BID MENDEZ Administration Spironolactone 25 mg 11/17/16 10:00 12/06/16 10:17 Aldactone - PO 25 mg DAILY MENDEZ Administration Thiamine HCl 100 mg 11/15/16 22:00 12/05/16 21:25 Vitamin B1 - PO 100 mg HS MENDEZ Administration Tolnaftate 1 applic 11/15/16 22:00 12/06/16 10:17 Tinactin 1% Cream - TP 1 applic BID MENDEZ Administration Tolnaftate 1 applic 11/30/16 22:00 12/06/16 10:18 Tinactin 1% Powder - TP 1 applic BID MENDEZ Administration Medication(s) Change(s): Start Belsomra 10 mg po HS prn for insomnia Current Side Effect: No Lab tests ordered: Yes Lab tests reviewed: Yes Provider note:: Patient reports experiencing difficulty to sleep. Reports that he has been sleeping poorly in part because his roomate snores too loud. He was told to inquire from nusing staff about the poosibility to relocate to another room. Hypnotic and adverse-effects of Belsomra discussed with patient and he agreed to try it Total face to face time:: 25 Mental Status Exam - Mental Status Exam Alert and Oriented to: Time, Place, Person Cognitive Function: Fair Mood: Hopeful, Euthymic Affect: Appropriate Patient Behavior: Cooperative Speech Pattern: Clear Voice Loudness: Normal Thought Process: Intact, Goal Oriented Thought Disorder: Not Present Hallucinations: Denies Suicidal Ideation: Denies Homicidal Ideation: Denies Insight/Judgement: Fair Sleep: Poorly Appetite: Good Muscle strength/Tone: Normal Gait/Station: Normal Psychiatric Treatment Plan - Problem List (1) Alcohol dependence Current Visit: Yes (2) Cocaine dependence Current Visit: Yes (3) Cannabis dependence Current Visit: Yes (4) Nicotine dependence Current Visit: Yes Qualifiers: Nicotine product type: cigarettes Substance use status: in withdrawal Qualified Code(s): F17.213 - Nicotine dependence, cigarettes, with withdrawal (5) Substance induced mood disorder Current Visit: Yes (6) Asthma Current Visit: Yes Qualifiers: Asthma severity: mild intermittent Asthma complication type: uncomplicated Qualified Code(s): J45.20 - Mild intermittent asthma, uncomplicated (7) GERD (gastroesophageal reflux disease) Current Visit: Yes Qualifiers: Esophagitis presence: without esophagitis Qualified Code(s): K21.9 - Gastro-esophageal reflux disease without esophagitis (8) Hypertension Current Visit: Yes Qualifiers: Hypertension type: essential hypertension Qualified Code(s): I10 - Essential (primary) hypertension Initial treatment plan: 1) Start Belsomra 10 mg po HS prn for insomnia. 2) Monitor progress
[2016-12-06] MEDS: MAG HYDROX/AL HYDROX/SIMETH 30 ML UNIT-DOSE CUP PO PRN (21:43)
[2016-12-06] MEDS: HYDROCORTISONE ACETATE 25 MG/SUPP.RECT RC SCH (21:43)
[2016-12-06] MEDS: IBUPROFEN 400 MG TABLET (FP) PO PRN (21:43)
[2016-12-06] MEDS: ATORVASTATIN CA 40 MG TABLET (FP) PO SCH (21:44)
[2016-12-06] MEDS: diphenhydrAMINE HCL 50 MG CAPSULE PO PRN (21:44)
[2016-12-06] MEDS: SUVOREXANT 10 MG TABLET PO PRN (21:45)
[2016-12-06] MEDS: P-EPHED 60MG/TRIPROLIDI 2.5MG TABLET PO PRN (21:47)
[2016-12-06] MEDS: MENTHOL/PHENOL 1 EACH UD MM PRN (21:47)
[2016-12-06] MEDS: THIAMINE HCL 100 MG TABLET (FP) PO SCH (21:49)
[2016-12-07] MEDS: PRENATAL VITAMINS W/ FOLIC ACID TABLET (FP) PO SCH (10:30)
[2016-12-07] MEDS: HYDROCHLOROTHIAZIDE 12.5 MG CAPSULE (FP) PO SCH (10:30)
[2016-12-07] MEDS: RANITIDINE HCL 150 MG TABLET (FP) PO SCH ×2 (10:30→22:14)
[2016-12-07] MEDS: SPIRONOLACTONE 25 MG TABLET (FP) PO SCH (10:30)
[2016-12-07] MEDS: MAG HYDROX/AL HYDROX/SIMETH 30 ML UNIT-DOSE CUP PO PRN ×2 (10:30→22:20)
[2016-12-07] MEDS: ASPIRIN COATED 81 MG TABLET.EC PO SCH (10:30)
[2016-12-07] MEDS: CARVEDILOL 12.5 MG TABLET (FP) PO SCH ×2 (10:30→22:13)
[2016-12-07] MEDS: guaiFENesin/D-METHORPHAN HB 10 ML UNIT-DOSE CUPS PO PRN (10:30)
[2016-12-07] MEDS: LISINOPRIL 5 MG TABLET (FP) PO SCH (10:30)
[2016-12-07] MEDS: ARTIFICIAL TEARS (POLYVINYL ALCOHOL 1.4%) OPTH DROPS OU SCH ×2 (10:31→22:40)
[2016-12-07] MEDS: TOLNAFTATE 1% CREAM 15 GM TUBE TP SCH ×2 (10:31→22:15)
[2016-12-07] MEDS: HYDROCORTISONE 2.5% TOPICAL CREAM 30 GM TUBE TP SCH ×2 (10:31→22:15)
[2016-12-07] MEDS: TOLNAFTATE 1% POWDER 45 GM POW TP SCH ×2 (10:31→22:40)
[2016-12-07] MEDS: LORATADINE 10 MG TABLET PO SCH (10:38)
[2016-12-07] MEDS: THIAMINE HCL 100 MG TABLET (FP) PO SCH (22:13)
[2016-12-07] MEDS: ATORVASTATIN CA 40 MG TABLET (FP) PO SCH (22:14)
[2016-12-07] MEDS: SUVOREXANT 10 MG TABLET PO PRN (22:16)
[2016-12-07] MEDS: diphenhydrAMINE HCL 50 MG CAPSULE PO PRN (22:17)
[2016-12-07] MEDS ORDERED: PT OWN MED DRAWER 7, Y5N ONE (22:22)
[2016-12-07] MEDS: MENTHOL/PHENOL 1 EACH UD MM PRN (22:24)
[2016-12-07] MEDS: HYDROCORTISONE ACETATE 25 MG/SUPP.RECT RC SCH (22:40)
[2016-12-08] MEDS ORDERED: PT OWN MED DRAWER 7, Y5N ONE ×3 (09:13→21:46)
[2016-12-08] MEDS: TOLNAFTATE 1% CREAM 15 GM TUBE TP SCH ×2 (10:26→21:46)
[2016-12-08] MEDS: HYDROCORTISONE 2.5% TOPICAL CREAM 30 GM TUBE TP SCH ×2 (10:26→21:46)
[2016-12-08] MEDS: PRENATAL VITAMINS W/ FOLIC ACID TABLET (FP) PO SCH (10:26)
[2016-12-08] MEDS: guaiFENesin/D-METHORPHAN HB 10 ML UNIT-DOSE CUPS PO PRN ×2 (10:26→21:47)
[2016-12-08] MEDS: TOLNAFTATE 1% POWDER 45 GM POW TP SCH ×2 (10:26→21:46)
[2016-12-08] MEDS: LISINOPRIL 5 MG TABLET (FP) PO SCH (10:27)
[2016-12-08] MEDS: SPIRONOLACTONE 25 MG TABLET (FP) PO SCH (10:27)
[2016-12-08] MEDS: ARTIFICIAL TEARS (POLYVINYL ALCOHOL 1.4%) OPTH DROPS OU SCH ×2 (10:27→22:53)
[2016-12-08] MEDS: HYDROCHLOROTHIAZIDE 12.5 MG CAPSULE (FP) PO SCH (10:27)
[2016-12-08] MEDS: RANITIDINE HCL 150 MG TABLET (FP) PO SCH ×2 (10:27→21:47)
[2016-12-08] MEDS: CARVEDILOL 12.5 MG TABLET (FP) PO SCH ×2 (10:27→21:47)
[2016-12-08] MEDS: LORATADINE 10 MG TABLET PO SCH (10:27)
[2016-12-08] MEDS: ACETAMINOPHEN 325 MG TABLET (FP) PO PRN (10:27)
[2016-12-08] MEDS: ASPIRIN COATED 81 MG TABLET.EC PO SCH (10:27)
[2016-12-08] MEDS: MENTHOL/PHENOL 1 EACH UD MM PRN (10:28)
[2016-12-08] MEDS: HYDROCORTISONE ACETATE 25 MG/SUPP.RECT RC SCH (21:47)
[2016-12-08] MEDS: MAG HYDROX/AL HYDROX/SIMETH 30 ML UNIT-DOSE CUP PO PRN (21:47)
[2016-12-08] MEDS: THIAMINE HCL 100 MG TABLET (FP) PO SCH (21:47)
[2016-12-08] MEDS: ATORVASTATIN CA 40 MG TABLET (FP) PO SCH (21:47)
[2016-12-08] MEDS: diphenhydrAMINE HCL 50 MG CAPSULE PO PRN (21:47)
[2016-12-08] MEDS: IBUPROFEN 400 MG TABLET (FP) PO PRN (21:48)
[2016-12-08] MEDS: SUVOREXANT 10 MG TABLET PO PRN (21:48)
[2016-12-09] MEDS: RANITIDINE HCL 150 MG TABLET (FP) PO SCH ×2 (10:15→21:30)
[2016-12-09] MEDS: LISINOPRIL 5 MG TABLET (FP) PO SCH (10:15)
[2016-12-09] MEDS: LORATADINE 10 MG TABLET PO SCH (10:15)
[2016-12-09] MEDS: IBUPROFEN 400 MG TABLET (FP) PO PRN (10:15)
[2016-12-09] MEDS: ASPIRIN COATED 81 MG TABLET.EC PO SCH (10:15)
[2016-12-09] MEDS: HYDROCHLOROTHIAZIDE 12.5 MG CAPSULE (FP) PO SCH (10:15)
[2016-12-09] MEDS: SPIRONOLACTONE 25 MG TABLET (FP) PO SCH (10:15)
[2016-12-09] MEDS: HYDROCORTISONE 2.5% TOPICAL CREAM 30 GM TUBE TP SCH ×2 (10:16→21:31)
[2016-12-09] MEDS: TOLNAFTATE 1% CREAM 15 GM TUBE TP SCH ×2 (10:16→21:31)
[2016-12-09] MEDS: TOLNAFTATE 1% POWDER 45 GM POW TP SCH ×2 (10:16→21:34)
[2016-12-09] MEDS: PRENATAL VITAMINS W/ FOLIC ACID TABLET (FP) PO SCH (10:16)
[2016-12-09] MEDS: guaiFENesin/D-METHORPHAN HB 10 ML UNIT-DOSE CUPS PO PRN (10:16)
[2016-12-09] MEDS: MAG HYDROX/AL HYDROX/SIMETH 30 ML UNIT-DOSE CUP PO PRN (10:16)
[2016-12-09] MEDS: CARVEDILOL 12.5 MG TABLET (FP) PO SCH ×2 (10:17→21:31)
[2016-12-09] MEDS: ARTIFICIAL TEARS (POLYVINYL ALCOHOL 1.4%) OPTH DROPS OU SCH ×2 (10:21→23:00)
[2016-12-09] MEDS: ATORVASTATIN CA 40 MG TABLET (FP) PO SCH (21:30)
[2016-12-09] MEDS: THIAMINE HCL 100 MG TABLET (FP) PO SCH (21:30)
[2016-12-09] MEDS: HYDROCORTISONE ACETATE 25 MG/SUPP.RECT RC SCH (21:32)
[2016-12-09] MEDS: SUVOREXANT 10 MG TABLET PO PRN (21:32)
[2016-12-10] MEDS: CARVEDILOL 12.5 MG TABLET (FP) PO SCH ×2 (10:14→21:32)
[2016-12-10] MEDS: LISINOPRIL 5 MG TABLET (FP) PO SCH (10:14)
[2016-12-10] MEDS: PRENATAL VITAMINS W/ FOLIC ACID TABLET (FP) PO SCH (10:14)
[2016-12-10] MEDS: SPIRONOLACTONE 25 MG TABLET (FP) PO SCH (10:15)
[2016-12-10] MEDS: IBUPROFEN 400 MG TABLET (FP) PO PRN (10:15)
[2016-12-10] MEDS: HYDROCHLOROTHIAZIDE 12.5 MG CAPSULE (FP) PO SCH (10:15)
[2016-12-10] MEDS: RANITIDINE HCL 150 MG TABLET (FP) PO SCH ×2 (10:15→21:32)
[2016-12-10] MEDS: ARTIFICIAL TEARS (POLYVINYL ALCOHOL 1.4%) OPTH DROPS OU SCH ×2 (10:15→22:25)
[2016-12-10] MEDS: LORATADINE 10 MG TABLET PO SCH (10:15)
[2016-12-10] MEDS: MAG HYDROX/AL HYDROX/SIMETH 30 ML UNIT-DOSE CUP PO PRN ×3 (10:15→22:48)
[2016-12-10] MEDS: ASPIRIN COATED 81 MG TABLET.EC PO SCH (10:15)
[2016-12-10] MEDS: guaiFENesin/D-METHORPHAN HB 10 ML UNIT-DOSE CUPS PO PRN ×2 (10:15→22:46)
[2016-12-10] MEDS: TOLNAFTATE 1% POWDER 45 GM POW TP SCH ×2 (10:16→22:25)
[2016-12-10] MEDS: HYDROCORTISONE 2.5% TOPICAL CREAM 30 GM TUBE TP SCH ×2 (10:16→22:25)
[2016-12-10] MEDS: TOLNAFTATE 1% CREAM 15 GM TUBE TP SCH ×2 (10:16→22:25)
[2016-12-10] MEDS: THIAMINE HCL 100 MG TABLET (FP) PO SCH (21:32)
[2016-12-10] MEDS: ATORVASTATIN CA 40 MG TABLET (FP) PO SCH (21:32)
[2016-12-10] MEDS: MAGNESIUM HYDROX 2400MG/30ML ORAL SUSPENSION 30 ML CUP PO PRN (21:34)
[2016-12-10] MEDS: diphenhydrAMINE HCL 50 MG CAPSULE PO PRN (21:35)
[2016-12-10] MEDS: HYDROCORTISONE ACETATE 25 MG/SUPP.RECT RC SCH (21:36)
[2016-12-10] MEDS: MENTHOL/PHENOL 1 EACH UD MM PRN (21:38)
[2016-12-11] MEDS: TOLNAFTATE 1% CREAM 15 GM TUBE TP SCH ×2 (09:52→22:05)
[2016-12-11] MEDS: HYDROCORTISONE 2.5% TOPICAL CREAM 30 GM TUBE TP SCH ×2 (09:52→22:03)
[2016-12-11] MEDS: RANITIDINE HCL 150 MG TABLET (FP) PO SCH ×2 (09:53→21:54)
[2016-12-11] MEDS: LISINOPRIL 5 MG TABLET (FP) PO SCH (09:53)
[2016-12-11] MEDS: ARTIFICIAL TEARS (POLYVINYL ALCOHOL 1.4%) OPTH DROPS OU SCH ×2 (09:53→21:56)
[2016-12-11] MEDS: PRENATAL VITAMINS W/ FOLIC ACID TABLET (FP) PO SCH (09:53)
[2016-12-11] MEDS: HYDROCHLOROTHIAZIDE 12.5 MG CAPSULE (FP) PO SCH (09:53)
[2016-12-11] MEDS: SPIRONOLACTONE 25 MG TABLET (FP) PO SCH (09:53)
[2016-12-11] MEDS: ASPIRIN COATED 81 MG TABLET.EC PO SCH (09:53)
[2016-12-11] MEDS: LORATADINE 10 MG TABLET PO SCH (09:53)
[2016-12-11] MEDS: CARVEDILOL 12.5 MG TABLET (FP) PO SCH ×2 (09:53→21:54)
[2016-12-11] MEDS: TOLNAFTATE 1% POWDER 45 GM POW TP SCH ×2 (09:54→22:05)
[2016-12-11] MEDS: MAG HYDROX/AL HYDROX/SIMETH 30 ML UNIT-DOSE CUP PO PRN (09:56)
[2016-12-11] MEDS: MENTHOL/PHENOL 1 EACH UD MM PRN (09:57)
[2016-12-11] MEDS: guaiFENesin/D-METHORPHAN HB 10 ML UNIT-DOSE CUPS PO PRN ×2 (09:58→21:59)
[2016-12-11] MEDS: ATORVASTATIN CA 40 MG TABLET (FP) PO SCH (21:54)
[2016-12-11] MEDS: diphenhydrAMINE HCL 50 MG CAPSULE PO PRN (21:54)
[2016-12-11] MEDS: THIAMINE HCL 100 MG TABLET (FP) PO SCH (21:54)
[2016-12-11] MEDS: MAGNESIUM HYDROX 2400MG/30ML ORAL SUSPENSION 30 ML CUP PO PRN (21:59)
[2016-12-11] MEDS: HYDROCORTISONE ACETATE 25 MG/SUPP.RECT RC SCH (22:04)
[2016-12-12] MEDS: diphenhydrAMINE HCL 50 MG CAPSULE PO PRN ×2 (00:22→22:05)
[2016-12-12 07:29] VITALS: TEMP 98.4
[2016-12-12] MEDS: HYDROCORTISONE 2.5% TOPICAL CREAM 30 GM TUBE TP SCH ×2 (10:17→22:06)
[2016-12-12] MEDS: LORATADINE 10 MG TABLET PO SCH (10:17)
[2016-12-12] MEDS: TOLNAFTATE 1% POWDER 45 GM POW TP SCH ×2 (10:17→22:06)
[2016-12-12] MEDS: CARVEDILOL 12.5 MG TABLET (FP) PO SCH ×2 (10:17→22:06)
[2016-12-12] MEDS: LISINOPRIL 5 MG TABLET (FP) PO SCH (10:17)
[2016-12-12] MEDS: ARTIFICIAL TEARS (POLYVINYL ALCOHOL 1.4%) OPTH DROPS OU SCH ×2 (10:17→22:06)
[2016-12-12] MEDS: RANITIDINE HCL 150 MG TABLET (FP) PO SCH ×2 (10:17→22:06)
[2016-12-12] MEDS: ASPIRIN COATED 81 MG TABLET.EC PO SCH (10:17)
[2016-12-12] MEDS: PRENATAL VITAMINS W/ FOLIC ACID TABLET (FP) PO SCH (10:17)
[2016-12-12] MEDS: HYDROCHLOROTHIAZIDE 12.5 MG CAPSULE (FP) PO SCH (10:17)
[2016-12-12] MEDS: SPIRONOLACTONE 25 MG TABLET (FP) PO SCH (10:19)
[2016-12-12] MEDS: MENTHOL/PHENOL 1 EACH UD MM PRN (10:20)
[2016-12-12] MEDS: guaiFENesin/D-METHORPHAN HB 10 ML UNIT-DOSE CUPS PO PRN ×2 (10:20→22:11)
[2016-12-12] MEDS: MAG HYDROX/AL HYDROX/SIMETH 30 ML UNIT-DOSE CUP PO PRN ×2 (10:20→22:12)
[2016-12-12] MEDS ORDERED: PT OWN MED DRAWER 7, Y5N ONE (10:25)
[2016-12-12] MEDS: TOLNAFTATE 1% CREAM 15 GM TUBE TP SCH ×2 (11:08→22:12)
--- NOTE | 2016-12-12 13:58 | PN ---
Psychiatric Progress Note Vital Signs: Vital Signs Period Temp Pulse Resp BP Sys/Fontenot Pulse Ox Last 24 Hr 98.4 F 71-86 16-18 120-142/71-80 Date of Session: 12/12/16 Chief Complaint:: Discharge Note HPI: Patient addressing Alcohol, Cocaine and Cannabis Dependence comorbid with Nicotine Dependence and Substance-induced Mood Disorder ROS: Asthma, GERD, HTN Current Medications: Active Medications Generic Name Dose Route Start Last Admin Trade Name Freq PRN Reason Stop Dose Admin Acetaminophen 650 mg 11/15/16 15:57 12/08/16 10:27 Tylenol - PO 650 mg Q4H PRN Administration PAIN Al Hydroxide/Mg Hydroxide 30 ml 11/15/16 15:57 12/12/16 10:20 Mylanta Oral Suspension - PO 30 ml Q6H PRN Administration DYSPEPSIA Albuterol Sulfate 2 puff 11/15/16 15:59 Ventolin Hfa Inhaler - IH Q4H PRN ASTHMA Artificial Tears 1 drop 11/16/16 22:00 12/12/16 10:17 Artificial Tears OU 1 drop BID MENDEZ Administration Aspirin 81 mg 11/16/16 14:39 12/12/16 10:17 Ecotrin - PO 81 mg DAILY MENDEZ Administration Atorvastatin Calcium 40 mg 11/16/16 14:38 12/11/16 21:54 Lipitor - PO 40 mg HS MENDEZ Administration Carvedilol 12.5 mg 11/16/16 14:35 12/12/16 10:17 Coreg - PO 12.5 mg BID MENDEZ Administration Diphenhydramine HCl 50 mg 11/15/16 15:57 12/12/16 00:22 Benadryl - PO 50 mg HSMR1 PRN Administration INSOMNIA Eucalyptus/Menthol/Phenol/Sorbitol 1 each 11/15/16 15:57 12/12/16 10:20 Cepastat Lozenge - MM 1 each Q4H PRN Administration SORE THROAT Guaifenesin 10 ml 11/15/16 15:57 12/12/16 10:20 Robitussin Dm - PO 10 ml Q6H PRN Administration COUGH Hydrochlorothiazide 12.5 mg 11/16/16 14:33 12/12/16 10:17 Hctz - PO 12.5 mg DAILY MENDEZ Administration Hydrocortisone 1 applic 11/15/16 22:00 12/12/16 10:17 Anusol 2.5% Hc Cream - TP 1 applic BID MENDEZ Administration Hydrocortisone Acetate 25 mg 11/30/16 22:00 12/11/16 22:04 Anusol Hc Suppository - RC 25 mg HS MENDEZ Administration Ibuprofen 400 mg 11/15/16 15:57 12/10/16 10:15 Motrin - PO 400 mg Q6H PRN Administration SEVERE PAIN Lisinopril 5 mg 11/16/16 14:34 12/12/16 10:17 Prinivil PO 5 mg DAILY MENDEZ Administration Loperamide HCl 4 mg 11/15/16 15:57 Imodium - PO Q6H PRN DIARRHEA Loratadine 10 mg 11/16/16 14:36 12/12/16 10:17 Claritin - PO 10 mg DAILY MENDEZ Administration Magnesium Citrate 300 ml 11/15/16 15:57 Citroma - PO Q48H PRN CONSTIPATION Magnesium Hydroxide 30 ml 11/15/16 15:57 12/11/16 21:59 Milk Of Magnesia - PO 30 ml DAILY PRN Administration CONSTIPATION Multivit/Folic Acid/Iron 1 tab 11/16/16 10:00 12/12/16 10:17 Vitamins (Sjr) - PO 1 tab DAILY MENDEZ Administration Pseudoephedrine/Triprolidine 1 combo 11/15/16 15:57 12/06/16 21:47 Actifed - PO 1 combo TID PRN Administration NASAL CONGESTION Ranitidine HCl 150 mg 11/16/16 22:00 12/12/16 10:17 Zantac - PO 150 mg BID MENDEZ Administration Spironolactone 25 mg 11/17/16 10:00 12/12/16 10:19 Aldactone - PO 25 mg DAILY MENDEZ Administration Thiamine HCl 100 mg 11/15/16 22:00 12/11/16 21:54 Vitamin B1 - PO 100 mg HS MENDEZ Administration Tolnaftate 1 applic 11/15/16 22:00 12/12/16 11:08 Tinactin 1% Cream - TP Not Given BID MENDEZ Tolnaftate 1 applic 11/30/16 22:00 12/12/16 10:17 Tinactin 1% Powder - TP 1 applic BID MENDEZ Administration Current Side Effect: No Lab tests ordered: Yes Lab tests reviewed: Yes Provider note:: Patient will complete this program on 12/13/16. He has met his treatment goals and will continue to address his issues in outpatient treatment at [facility] at [address] [place] [address]. Told keno writer that from his participation in this program, he has learned to identify his triggers and has acquired the tools to manage them. He is stable for discharge on 12/13/16 Total face to face time:: 35 Mental Status Exam - Mental Status Exam Alert and Oriented to: Time, Place, Person Cognitive Function: Fair Patient Appearance: Well Groomed Mood: Hopeful, Euthymic Affect: Appropriate Patient Behavior: Cooperative Speech Pattern: Clear Voice Loudness: Normal Thought Process: Intact, Goal Oriented Thought Disorder: Not Present Hallucinations: Denies Suicidal Ideation: Denies Homicidal Ideation: Denies Insight/Judgement: Fair Sleep: Fair Appetite: Good Muscle strength/Tone: Normal Gait/Station: Normal Psychiatric Treatment Plan - Problem List (1) Alcohol dependence Current Visit: Yes (2) Cocaine dependence Current Visit: Yes (3) Cannabis dependence Current Visit: Yes (4) Nicotine dependence Current Visit: Yes Qualifiers: Nicotine product type: cigarettes Substance use status: in withdrawal Qualified Code(s): F17.213 - Nicotine dependence, cigarettes, with withdrawal (5) Substance induced mood disorder Current Visit: Yes (6) Asthma Current Visit: Yes Qualifiers: Asthma severity: mild intermittent Asthma complication type: uncomplicated Qualified Code(s): J45.20 - Mild intermittent asthma, uncomplicated (7) GERD (gastroesophageal reflux disease) Current Visit: Yes Qualifiers: Esophagitis presence: without esophagitis Qualified Code(s): K21.9 - Gastro-esophageal reflux disease without esophagitis (8) Hypertension Current Visit: Yes Qualifiers: Hypertension type: essential hypertension Qualified Code(s): I10 - Essential (primary) hypertension Initial treatment plan: Patient will discharged tomorrow and referred to [facility] for outpatient treatment
[2016-12-12] MEDS: THIAMINE HCL 100 MG TABLET (FP) PO SCH (22:05)
[2016-12-12] MEDS: ATORVASTATIN CA 40 MG TABLET (FP) PO SCH (22:06)
[2016-12-12] MEDS: HYDROCORTISONE ACETATE 25 MG/SUPP.RECT RC SCH (22:49)
[2016-12-13] MEDS: LISINOPRIL 5 MG TABLET (FP) PO SCH (09:33)
[2016-12-13] MEDS: SPIRONOLACTONE 25 MG TABLET (FP) PO SCH (09:33)
[2016-12-13] MEDS: PRENATAL VITAMINS W/ FOLIC ACID TABLET (FP) PO SCH (09:33)
[2016-12-13] MEDS: IBUPROFEN 400 MG TABLET (FP) PO PRN (09:33)
[2016-12-13] MEDS: CARVEDILOL 12.5 MG TABLET (FP) PO SCH (09:33)
[2016-12-13] MEDS: RANITIDINE HCL 150 MG TABLET (FP) PO SCH (09:33)
[2016-12-13] MEDS: ASPIRIN COATED 81 MG TABLET.EC PO SCH (09:33)
[2016-12-13] MEDS: guaiFENesin/D-METHORPHAN HB 10 ML UNIT-DOSE CUPS PO PRN (09:33)
[2016-12-13] MEDS: HYDROCHLOROTHIAZIDE 12.5 MG CAPSULE (FP) PO SCH (09:33)
[2016-12-13] MEDS: MAG HYDROX/AL HYDROX/SIMETH 30 ML UNIT-DOSE CUP PO PRN (09:33)
[2016-12-13] MEDS: ARTIFICIAL TEARS (POLYVINYL ALCOHOL 1.4%) OPTH DROPS OU SCH (09:34)
[2016-12-13] MEDS: HYDROCORTISONE 2.5% TOPICAL CREAM 30 GM TUBE TP SCH (09:34)
[2016-12-13] MEDS: LORATADINE 10 MG TABLET PO SCH (09:35)
[2016-12-13] MEDS: TOLNAFTATE 1% POWDER 45 GM POW TP SCH (09:36)
[2016-12-13] MEDS: TOLNAFTATE 1% CREAM 15 GM TUBE TP SCH (09:36)
[2016-12-13 10:50] VITALS: BP 118/72; PULSE 76
== END 2016-12-13 10:20 | disposition home or self-care (01) | DRG 772 ==
LOC: YASAS 10:59 → Y3W 18:10
PROVIDERS: ADMIT Psychiatry & Neurology Psychiatry; ATTEND Psychiatry & Neurology Psychiatry
PROC: HZ42ZZZ Group Counseling for Substance Abuse Treatment, Cognitive-Behavioral (ICD-10-PCS; principal; 2016-11-15)
DX: F10.230 Alcohol dependence with withdrawal, uncomplicated (principal); F14.20 Cocaine dependence, uncomplicated; F12.20 Cannabis dependence, uncomplicated; F17.213 Nicotine dependence, cigarettes, with withdrawal; F19.24 Other psychoactive substance dependence with psychoactive substance-induced mood disorder; J45.20 Mild intermittent asthma, uncomplicated; K21.9 Gastro-esophageal reflux disease without esophagitis; I10 Essential (primary) hypertension; E78.00 Pure hypercholesterolemia, unspecified; R00.1 Bradycardia, unspecified
CPT/HCPCS: 36415; 80053; 81003; 85027; 85660; 86593; 93005; 93010

== ENCOUNTER 2018-07-20 20:14 | Inpatient (IN) | payer OTHER ==
[2018-07-20 22:47] VITALS: BMI 20.7
[2018-07-20] MEDS ORDERED: chlordiazePOXIDE HCL 25 MG CAPSULE PO SCH (23:00)
--- NOTE | 2018-07-20 23:48 | HP ---
CIWA Score Nausea/Vomitin-Mild Nausea/No Vomiting Muscle Tremors: 4-Moderate,w/Arms Extend Anxiety: 4-Mod. Anxious/Guarded Agitation: 4-Moderately Restless Paroxysmal Sweats: 2 Orientation: 0-Oriented Tacttile Disturbances: 0-None Auditory Disturbances: 0-None Visual Disturbances: 0-None Headache: 0-None Present CIWA-Ar Total Score: 15 - Admission Criteria OASAS Guidelines: Admission for Medically Managed Detox: Requires at least one of the followin. CIWA greater than 12 2. Seizures within the past 24 hours 3. Delirium tremens within the past 24 hours 4. Hallucinations within the past 24 hours 5. Acute intervention needed for co occurring medical disorder 6. Acute intervention needed for co occurring psychiatric disorder 7. Severe withdrawal that cannot be handled at a lower level of care (continued vomiting, continued diarrhea, abnormal vital signs) requiring intravenous medication and/or fluids 8. Admission ROS [facility] Chief Complaint: Alcohol withdrawal symptoms Allergies/Adverse Reactions: Allergies Allergy/AdvReac Type Severity Reaction Status Date / Time No Known Allergies Allergy Verified 07/20/18 22:18 History of Present Illness: 63 years old male with a long history of alcohol dependence is seeking admission to detox. Patient has been in previous detox and reports insignificant period of sobriety. Patient has medical history of hypertension, hypercholesterolemia, asthma, GERD and depression. He has a pacemaker in place. Denies suicidal ideation at this time Exam Limitations: No Limitations - Ebola screening Have you traveled outside of the country in the last 21 days: No Have you had contact with anyone from an Ebola affected area: No Do you have a fever: No - Review of Systems Constitutional: Chills, Malaise EENT: reports: No Symptoms Reported Respiratory: reports: No Symptoms reported Cardiac: reports: No Symptoms Reported GI: reports: Abdominal Distended, Poor Appetite, Poor Fluid Intake, Abdominal cramping : reports: No Symptoms Reported Musculoskeletal: reports: Back Pain Integumentary: reports: Dryness, Flushing Neuro: reports: Headache, Tremors Endocrine: reports: No Symptoms Reported Hematology: reports: No Symptoms Reported Psychiatric: reports: Mood/Affect Appropiate, Orientated x3 Other Systems: Reviewed and Negative Patient History - Patient Medical History Hx Anemia: No Hx Asthma: Yes (Not on medication) Hx Chronic Obstructive Pulmonary Disease (COPD): No Hx Cancer: No Hx Cardiac Disorders: Yes (Pt has Pacemaker 05/09) Hx Congestive Heart Failure: No Hx Hypertension: Yes (Amlodipine, Carvedilol) Hx Hypercholesterolemia: Yes (ON ATORVASTATIN 40 MG DAILY) Hx Pacemaker: No HX Cerebrovascular Accident: No Hx Seizures: No Hx Dementia: No Hx Diabetes: No Hx Gastrointestinal Disorders: Yes (GERD) Hx Liver Disease: No Hx Genitourinary Disorders: No Hx Sexually Transmitted Disorders: No Hx Renal Disease (ESRD): No Hx Thyroid Disease: No Hx Human Immunodeficiency Virus (HIV): No (NEGATIVE HX) Hx Hepatitis C: No Hx Depression: No Hx Suicide Attempt: No (Denies suicidal ideation at this time) Hx Bipolar Disorder: No Hx Schizophrenia: No - Patient Surgical History Past Surgical History: Yes Hx Neurologic Surgery: No Hx Cataract Extraction: No Hx Cardiac Surgery: No Hx Lung Surgery: No Hx Breast Surgery: No Hx Breast Biopsy: No Hx Abdominal Surgery: No Hx Appendectomy: No Hx Cholecystectomy: No Hx Genitourinary Surgery: No Hx Section: No Hx Orthopedic Surgery: Yes (Dislocation of lt. shoulder) Anesthesia Reaction: No - PPD History Previous Implant?: Yes Documented Results: Negative w/o proof Date: 11/17/16 Results: 0 mm PPD to be Administered?: Yes - Reproductive History Patient is a Female of Child Bearing Age (11 -55 yrs old): No (Male) - Smoking Cessation Smoking history: Former smoker Have you smoked in the past 12 months: No Aproximately how many cigarettes per day: 3 If you are a former smoker, when did you quit?: "10 YRS AGO WHEN I DID SHOULDER SX" Hx Chewing Tobacco Use: No Initiated information on smoking cessation: No - Substance & Tx. History Hx Alcohol Use: Yes Hx Substance Use: Yes Substance Use Type: Alcohol, Cocaine, Marijuana Hx Substance Use Treatment: Yes ([facility]) - Substances abused Alcohol Substance route: Oral Frequency: Daily Amount used: Beer 4 cans Age of first use: 19 Date of last use: 07/20/18 Marijuana/Hashish Substance route: Smoking Frequency: Daily Amount used: $10 Age of first use: 32 Date of last use: 07/19/18 Family Disease History - Family Disease History Family Disease History: Other: Father (), Mother () Admission Physical Exam [facility] - Vital Signs Vital Signs: Vital Signs - 24 hr 07/20/18 07/20/18 22:45 22:47 Temperature 99.3 F 99.3 F Pulse Rate 67 67 Respiratory 18 18 Rate Blood Pressure 143/90 143/90 - Physical General Appearance: Yes: Moderate Distress, Tremorous, Irritable, Anxious HEENTM: Yes: Normal ENT Inspection, Normal Voice, KAREL Respiratory: Yes: Lungs Clear, Normal Breath Sounds, No Respiratory Distress Neck: Yes: Supple Breast: Yes: Breasts Symetrical Cardiology: Yes: Regular Rhythm, Regular Rate Abdominal: Yes: Normal Bowel Sounds Back: Yes: Normal Inspection Musculoskeletal: Yes: Back pain Extremities: Yes: Tremors Neurological: Yes: Alert, Normal Mood/Affect Integumentary: Yes: Warm Lymphatic: Yes: Within Normal Limits - Diagnostic (1) Hypercholesteremia Current Visit: Yes Status: Acute (2) Alcohol dependence with uncomplicated withdrawal Current Visit: No Status: Chronic (3) Asthma Current Visit: No Status: Chronic Qualifiers: Asthma severity: mild intermittent Asthma complication type: uncomplicated Qualified Code(s): J45.20 - Mild intermittent asthma, uncomplicated (4) Cannabis dependence Current Visit: No Status: Chronic (5) Cocaine dependence Current Visit: No Status: Chronic (6) GERD (gastroesophageal reflux disease) Current Visit: No Status: Chronic Qualifiers: Esophagitis presence: without esophagitis Qualified Code(s): K21.9 - Gastro -esophageal reflux disease without esophagitis (7) Hypertension Current Visit: No Status: Chronic Qualifiers: Hypertension type: essential hypertension Qualified Code(s): I10 - Essential (primary) hypertension Cleared for Admission [facility] - Detox or Rehab S Level of Care: Medically Managed Detox Regimen/Protocol: Librium Breathalyzer - Breathalyzer Breathalyzer: 0.041 Inpatient Rehab Admission - Rehab Decision to Admit Inpatient rehab admission?: No
[2018-07-20] MEDS ORDERED: MAGNESIUM HYDROX 2400MG/30ML ORAL SUSPENSION 30 ML CUP PO PRN (23:58)
[2018-07-20] MEDS ORDERED: IBUPROFEN 400 MG TABLET (FP) PO PRN (23:58)
[2018-07-20] MEDS ORDERED: METHOCARBAMOL 500 MG TABLET PO PRN (23:58)
[2018-07-20] MEDS ORDERED: MENTHOL/PHENOL 1 EACH UD MM PRN (23:58)
[2018-07-20] MEDS ORDERED: ACETAMINOPHEN 325 MG TABLET (FP) PO PRN ×2 (23:58)
[2018-07-20] MEDS ORDERED: chlordiazePOXIDE HCL 25 MG CAPSULE PO PRN (23:58)
[2018-07-20] MEDS ORDERED: MAGNESIUM CITRATE 300 ML BOTTLE PO PRN (23:58)
[2018-07-20] MEDS ORDERED: BISMUTH SUBSALICYLATE 524 MG/30 ML UD PO PRN (23:58)
[2018-07-21] MEDS ORDERED: chlordiazePOXIDE HCL 25 MG CAPSULE PO PRN (02:09)
[2018-07-21] MEDS: hydrOXYzine PAMOATE 25 MG CAPSULE (FP) PO PRN (02:40)
[2018-07-21] MEDS: chlordiazePOXIDE HCL 25 MG CAPSULE PO SCH ×4 (06:38→22:11)
[2018-07-21] MEDS: FERROUS SO4 325 MG TABLET (FP) PO SCH (08:00)
[2018-07-21 10:16] LABS: HEMATOCRIT 36.8 % (35.4-49); HEMOGLOBIN 11.5 GM/dL (11.7-16.9); MCH 23.2 pg (25.7-33.7); MCHC 31.4 g/dl (32.0-35.9); MEAN PLT VOLUME 9.2 fl (7.5-11.1); PLATELET COUNT 243 K/MM3 (134-434); RBC 4.97 M/mm3 (4.00-5.60); RDW 20.6 % (11.9-15.9); WHITE BLOOD COUNT 4.2 K/mm3 (4.0-10.0)
[2018-07-21 10:30] LABS: ALK PHOS 67 U/L (45-117); ANION GAP 6 MMOL/L (8-16); BILIRUBIN,TOTAL 0.8 mg/dL (0.2-1); BLOOD UREA NITROGEN 14 mg/dL (7-18); CALCIUM 9.2 mg/dL (8.5-10.1); CHLORIDE 105 mmol/L (98-107); CO2 30 mmol/L (21-32); GLUCOSE,RANDOM 79 mg/dL (74-106); POTASSIUM 3.9 mmol/L (3.5-5.1); SGOT/AST 218 U/L (15-37); SGPT/ALT 116 U/L (13-61); SODIUM 141 mmol/L (136-145); TOT PROT 7.5 g/dl (6.4-8.2)
--- NOTE | 2018-07-21 10:58 | EKG ---
Test Reason : Blood Pressure : / mmHG Vent. Rate : 066 BPM Atrial Rate : 066 BPM P-R Int : 202 ms QRS Dur : 186 ms QT Int : 468 ms P-R-T Axes : 081 261 068 degrees QTc Int : 490 ms Suspect unspecified pacemaker failure Atrial-sensed ventricular-paced rhythm ABNORMAL ECG WHEN COMPARED WITH ECG OF 15-NOV-2016 22:44, ELECTRONIC VENTRICULAR PACEMAKER HAS REPLACED SINUS RHYTHM Confirmed by BILL RODNEY MD ([id number]) on 07/21/2018 10:58:07 AM Referred By: JACOB AKERS Confirmed By:BILL RODNEY MD
[2018-07-21] MEDS: FUROSEMIDE 20 MG TABLET (FP) PO SCH (11:01)
[2018-07-21] MEDS: CARVEDILOL 12.5 MG TABLET (FP) PO SCH ×2 (11:01→22:11)
[2018-07-21] MEDS: amLODIPine BESYLATE 5 MG TABLET (FP) PO SCH (11:01)
[2018-07-21] MEDS: ASPIRIN 81 MG CHEWABLE TABLETS PO SCH (11:01)
[2018-07-21] MEDS: PRENATAL VITAMINS W/ FOLIC ACID TABLET (FP) PO SCH (11:01)
[2018-07-21] MEDS: ATORVASTATIN CA 40 MG TABLET (FP) PO SCH (11:01)
[2018-07-21] MEDS: RANITIDINE HCL 150 MG TABLET (FP) PO SCH ×2 (11:02→22:11)
--- NOTE | 2018-07-21 14:49 | PN ---
[facility] CIWA - CIWA Score Nausea/Vomitin-Mild Nausea/No Vomiting Muscle Tremors: 3 Anxiety: 3 Agitation: 3 Paroxysmal Sweats: 1-Minimal Palms Moist Orientation: 0-Oriented Tacttile Disturbances: 0-None Auditory Disturbances: 0-None Visual Disturbances: 0-None Headache: 1-Very Mild CIWA-Ar Total Score: 12 BHS Progress Note (SOAP) Subjective: pt states feeling tired, day #2 of detox O: Vital Signs - 24 hr 07/20/18 07/20/18 07/21/18 22:45 22:47 02:33 Temperature 99.3 F 99.3 F 98.8 F Pulse Rate 67 67 70 Respiratory 18 18 18 Rate Blood Pressure 143/90 143/90 163/84 07/21/18 07/21/18 07/21/18 06:35 09:16 13:42 Temperature 97.2 F L 97.4 F L 98.4 F Pulse Rate 65 68 78 Respiratory 18 18 18 Rate Blood Pressure 111/65 139/83 121/72 Laboratory Tests 07/21/18 07/21/18 07/21/18 07:00 07:00 07:00 WBC 4.2 RBC 4.97 Hgb 11.5 L Hct 36.8 MCV 74.0 L MCH 23.2 L MCHC 31.4 L RDW 20.6 H Plt Count 243 MPV 9.2 Sodium 141 Potassium 3.9 Chloride 105 Carbon Dioxide 30 Anion Gap 6 L BUN 14 Creatinine 1.0 Creat Clearance w eGFR 75.97 Random Glucose 79 Calcium 9.2 Total Bilirubin 0.8 AST 218 H ALT 116 H Alkaline Phosphatase 67 Total Protein 7.5 Albumin 4.0 RPR Titer Nonreactive a/pcontinue detox protocol-
[2018-07-21] MEDS: THIAMINE HCL 100 MG TABLET (FP) PO SCH (22:11)
[2018-07-21] MEDS ORDERED: chlordiazePOXIDE HCL 25 MG CAPSULE PO SCH (23:00)
[2018-07-22] MEDS: chlordiazePOXIDE HCL 25 MG CAPSULE PO SCH ×4 (05:58→22:53)
[2018-07-22] MEDS: FERROUS SO4 325 MG TABLET (FP) PO SCH (07:21)
[2018-07-22] MEDS: ATORVASTATIN CA 40 MG TABLET (FP) PO SCH (11:12)
[2018-07-22] MEDS: amLODIPine BESYLATE 5 MG TABLET (FP) PO SCH (11:12)
[2018-07-22] MEDS: RANITIDINE HCL 150 MG TABLET (FP) PO SCH ×2 (11:12→22:44)
[2018-07-22] MEDS: PRENATAL VITAMINS W/ FOLIC ACID TABLET (FP) PO SCH (11:12)
[2018-07-22] MEDS: ASPIRIN 81 MG CHEWABLE TABLETS PO SCH (11:12)
[2018-07-22] MEDS: CARVEDILOL 12.5 MG TABLET (FP) PO SCH ×2 (11:12→22:57)
--- NOTE | 2018-07-22 12:33 | PN ---
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) Objective: 07/22/18 12:29 Vital Signs 07/22/18 07/22/18 06:12 09:41 Temperature 97 F L 98.1 F Pulse Rate 59 L 66 Respiratory 18 16 Rate Blood Pressure 134/72 111/60 Laboratory Tests 07/21/18 07/21/18 07/21/18 07:00 07:00 07:00 WBC 4.2 RBC 4.97 Hgb 11.5 L Hct 36.8 MCV 74.0 L MCH 23.2 L MCHC 31.4 L RDW 20.6 H Plt Count 243 MPV 9.2 Sodium 141 Potassium 3.9 Chloride 105 Carbon Dioxide 30 Anion Gap 6 L BUN 14 Creatinine 1.0 Creat Clearance w eGFR 75.97 Random Glucose 79 Calcium 9.2 Total Bilirubin 0.8 AST 218 H ALT 116 H Alkaline Phosphatase 67 Total Protein 7.5 Albumin 4.0 RPR Titer Nonreactive REPEAT CMP AND CBC ON 07/24/18 Assessment: 07/22/18 12:31 WITHDRAWAL SX Plan: CONTINUE DETOX
[2018-07-22] MEDS ORDERED: WITCH HAZEL 50% (TUCKS) 40 PAD/JAR PAD TP PRN (14:10)
[2018-07-22] MEDS ORDERED: DOCUSATE SODIUM 100 MG CAPSULE (FP) PO ONE (14:15)
[2018-07-22] MEDS: HYDROCORTISONE 2.5% TOPICAL CREAM 30 GM TUBE PR SCH (22:43)
[2018-07-22] MEDS: DOCUSATE SODIUM 100 MG CAPSULE (FP) PO SCH (22:44)
[2018-07-22] MEDS: MELATONIN 5 MG TABLETS PO PRN (22:45)
[2018-07-22] MEDS: THIAMINE HCL 100 MG TABLET (FP) PO SCH (22:57)
[2018-07-22] MEDS: CLOTRIMAZOLE 1% CREAM 15 GM TUBE TP SCH (22:57)
[2018-07-22] MEDS ORDERED: chlordiazePOXIDE HCL 10 MG CAPSULE PO SCH (23:00)
[2018-07-22] MEDS ORDERED: chlordiazePOXIDE HCL 10 MG CAPSULE PO PRN (23:00)
[2018-07-23] MEDS ORDERED: chlordiazePOXIDE HCL 10 MG CAPSULE PO PRN (05:00)
[2018-07-23] MEDS: chlordiazePOXIDE HCL 10 MG CAPSULE PO SCH ×4 (06:02→22:22)
[2018-07-23] MEDS: FERROUS SO4 325 MG TABLET (FP) PO SCH (07:55)
[2018-07-23] MEDS: ASPIRIN 81 MG CHEWABLE TABLETS PO SCH (10:38)
[2018-07-23] MEDS: CARVEDILOL 12.5 MG TABLET (FP) PO SCH ×2 (10:39→22:22)
[2018-07-23] MEDS: amLODIPine BESYLATE 5 MG TABLET (FP) PO SCH (10:39)
[2018-07-23] MEDS: ATORVASTATIN CA 40 MG TABLET (FP) PO SCH (10:39)
[2018-07-23] MEDS: RANITIDINE HCL 150 MG TABLET (FP) PO SCH ×2 (10:39→22:22)
[2018-07-23] MEDS: FUROSEMIDE 20 MG TABLET (FP) PO SCH (10:39)
[2018-07-23] MEDS: PRENATAL VITAMINS W/ FOLIC ACID TABLET (FP) PO SCH (10:39)
[2018-07-23] MEDS: DOCUSATE SODIUM 100 MG CAPSULE (FP) PO SCH ×2 (10:39→22:23)
[2018-07-23] MEDS: CLOTRIMAZOLE 1% CREAM 15 GM TUBE TP SCH ×2 (10:40→22:22)
[2018-07-23] MEDS: hydrOXYzine PAMOATE 25 MG CAPSULE (FP) PO PRN ×2 (10:42→17:21)
[2018-07-23] MEDS: ARTIFICIAL TEARS (POLYVINYL ALCOHOL) OPTH DROPS OU SCH ×4 (12:18→22:22)
--- NOTE | 2018-07-23 15:17 | PN ---
[facility] CIWA - CIWA Score Nausea/Vomitin-Mild Nausea/No Vomiting Muscle Tremors: 1-None Visible, but [place] Anxiety: 1-Mildly Anxious Agitation: 1-Slight > Activity Paroxysmal Sweats: 1-Minimal Palms Moist Orientation: 0-Oriented Tacttile Disturbances: 0-None Auditory Disturbances: 0-None Visual Disturbances: 0-None Headache: 0-None Present CIWA-Ar Total Score: 5 BHS Progress Note (SOAP) Subjective: dry eyes no redness denies vision change no swell Objective: 07/23/18 15:15 Vital Signs Temperature 96.5 F L 07/23/18 13:21 Pulse Rate 72 07/23/18 13:21 Respiratory Rate 18 07/23/18 13:21 Blood Pressure 117/70 07/23/18 13:21 O2 Sat by Pulse Oximetry (%) Laboratory Last Values WBC 4.2 K/mm3 (4.0-10.0) 07/21/18 07:00 RBC 4.97 M/mm3 (4.00-5.60) 07/21/18 07:00 Hgb 11.5 GM/dL (11.7-16.9) L 07/21/18 07:00 Hct 36.8 % (35.4-49) 07/21/18 07:00 MCV 74.0 fl (80-96) L 07/21/18 07:00 MCH 23.2 pg (25.7-33.7) L 07/21/18 07:00 MCHC 31.4 g/dl (32.0-35.9) L 07/21/18 07:00 RDW 20.6 % (11.9-15.9) H 07/21/18 07:00 Plt Count 243 K/MM3 (134-434) 07/21/18 07:00 MPV 9.2 fl (7.5-11.1) 07/21/18 07:00 Sodium 141 mmol/L (136-145) 07/21/18 07:00 Potassium 3.9 mmol/L (3.5-5.1) 07/21/18 07:00 Chloride 105 mmol/L (98-107) 07/21/18 07:00 Carbon Dioxide 30 mmol/L (21-32) 07/21/18 07:00 Anion Gap 6 MMOL/L (8-16) L 07/21/18 07:00 BUN 14 mg/dL (7-18) 07/21/18 07:00 Creatinine 1.0 mg/dL (0.55-1.3) 07/21/18 07:00 Creat Clearance w eGFR 75.97 (>60) 07/21/18 07:00 Random Glucose 79 mg/dL (74-106) 07/21/18 07:00 Calcium 9.2 mg/dL (8.5-10.1) 07/21/18 07:00 Total Bilirubin 0.8 mg/dL (0.2-1) 07/21/18 07:00 AST 218 U/L (15-37) H 07/21/18 07:00 ALT 116 U/L (13-61) H 07/21/18 07:00 Alkaline Phosphatase 67 U/L (45-117) 07/21/18 07:00 Total Protein 7.5 g/dl (6.4-8.2) 07/21/18 07:00 Albumin 4.0 g/dl (3.4-5.0) 07/21/18 07:00 RPR Titer Nonreactive (NONREACTIVE) 07/21/18 07:00 lab noted ast elevation Assessment: 07/23/18 15:16 alcohol withdrawal sx Plan: continue detox artificial tear
[2018-07-23] MEDS: HYDROCORTISONE 2.5% TOPICAL CREAM 30 GM TUBE PR SCH (22:22)
[2018-07-23] MEDS: THIAMINE HCL 100 MG TABLET (FP) PO SCH (22:22)
[2018-07-23] MEDS: MELATONIN 5 MG TABLETS PO PRN (22:22)
[2018-07-23] MEDS: MAG HYDROX/AL HYDROX/SIMETH 30 ML UNIT-DOSE CUP PO PRN (22:47)
[2018-07-23] MEDS ORDERED: chlordiazePOXIDE HCL 10 MG CAPSULE PO SCH (23:00)
[2018-07-24] MEDS: chlordiazePOXIDE HCL 10 MG CAPSULE PO SCH ×2 (06:24→17:25)
[2018-07-24] MEDS: ASPIRIN 81 MG CHEWABLE TABLETS PO SCH (10:01)
[2018-07-24] MEDS: DOCUSATE SODIUM 100 MG CAPSULE (FP) PO SCH ×2 (10:01→21:01)
[2018-07-24] MEDS: amLODIPine BESYLATE 5 MG TABLET (FP) PO SCH (10:01)
[2018-07-24] MEDS: RANITIDINE HCL 150 MG TABLET (FP) PO SCH ×2 (10:01→21:01)
[2018-07-24] MEDS: CARVEDILOL 12.5 MG TABLET (FP) PO SCH ×2 (10:01→21:01)
[2018-07-24] MEDS: PRENATAL VITAMINS W/ FOLIC ACID TABLET (FP) PO SCH (10:01)
[2018-07-24] MEDS: FERROUS SO4 325 MG TABLET (FP) PO SCH (10:01)
[2018-07-24] MEDS: ATORVASTATIN CA 40 MG TABLET (FP) PO SCH (10:01)
[2018-07-24] MEDS: ARTIFICIAL TEARS (POLYVINYL ALCOHOL) OPTH DROPS OU SCH ×4 (10:03→21:00)
[2018-07-24] MEDS: CLOTRIMAZOLE 1% CREAM 15 GM TUBE TP SCH ×2 (10:03→21:01)
[2018-07-24 10:20] LABS: HEMATOCRIT 33.7 % (35.4-49); HEMOGLOBIN 10.7 GM/dL (11.7-16.9); MCH 23.2 pg (25.7-33.7); MCHC 31.6 g/dl (32.0-35.9); MEAN CELL VOLUME 73.3 fl (80-96); PLATELET COUNT 236 K/MM3 (134-434); RDW 20.4 % (11.9-15.9); WHITE BLOOD COUNT 4.2 K/mm3 (4.0-10.0)
[2018-07-24 10:30] LABS: ALBUMIN 3.5 g/dl (3.4-5.0); ALK PHOS 64 U/L (45-117); ANION GAP 6 MMOL/L (8-16); BILIRUBIN,TOTAL 0.2 mg/dL (0.2-1); BLOOD UREA NITROGEN 16 mg/dL (7-18); CALCIUM 8.9 mg/dL (8.5-10.1); CHLORIDE 107 mmol/L (98-107); CO2 31 mmol/L (21-32); CREATININE 1.1 mg/dL (0.55-1.3); GLUCOSE,RANDOM 92 mg/dL (74-106); SGOT/AST 41 U/L (15-37); SGPT/ALT 68 U/L (13-61); SODIUM 144 mmol/L (136-145); TOT PROT 6.4 g/dl (6.4-8.2)
--- NOTE | 2018-07-24 13:41 | PN ---
S CIWA - CIWA Score Nausea/Vomitin-No Nausea/No Vomiting Muscle Tremors: 1-None Visible, but [place] Anxiety: 0-No Anxiety, at Ease Agitation: 1-Slight > Activity Paroxysmal Sweats: No Perspiration Orientation: 0-Oriented Tacttile Disturbances: 0-None Auditory Disturbances: 0-None Visual Disturbances: 0-None Headache: 0-None Present CIWA-Ar Total Score: 2 BHS Progress Note (SOAP) Subjective: feeling better today discuss aftercare with peers social with peers in day room Objective: 07/24/18 13:45 Vital Signs Temperature 97.7 F 07/24/18 13:24 Pulse Rate 65 07/24/18 13:24 Respiratory Rate 18 07/24/18 13:24 Blood Pressure 128/75 07/24/18 13:24 O2 Sat by Pulse Oximetry (%) Laboratory Last Values WBC 4.2 K/mm3 (4.0-10.0) 07/24/18 07:00 RBC 4.60 M/mm3 (4.00-5.60) 07/24/18 07:00 Hgb 10.7 GM/dL (11.7-16.9) L 07/24/18 07:00 Hct 33.7 % (35.4-49) L 07/24/18 07:00 MCV 73.3 fl (80-96) L 07/24/18 07:00 MCH 23.2 pg (25.7-33.7) L 07/24/18 07:00 MCHC 31.6 g/dl (32.0-35.9) L 07/24/18 07:00 RDW 20.4 % (11.9-15.9) H 07/24/18 07:00 Plt Count 236 K/MM3 (134-434) 07/24/18 07:00 MPV 9.0 fl (7.5-11.1) 07/24/18 07:00 Sodium 144 mmol/L (136-145) 07/24/18 07:00 Potassium 4.0 mmol/L (3.5-5.1) 07/24/18 07:00 Chloride 107 mmol/L (98-107) 07/24/18 07:00 Carbon Dioxide 31 mmol/L (21-32) 07/24/18 07:00 Anion Gap 6 MMOL/L (8-16) L 07/24/18 07:00 BUN 16 mg/dL (7-18) 07/24/18 07:00 Creatinine 1.1 mg/dL (0.55-1.3) 07/24/18 07:00 Creat Clearance w eGFR 68.05 (>60) 07/24/18 07:00 Random Glucose 92 mg/dL (74-106) 07/24/18 07:00 Calcium 8.9 mg/dL (8.5-10.1) 07/24/18 07:00 Total Bilirubin 0.2 mg/dL (0.2-1) 07/24/18 07:00 AST 41 U/L (15-37) H 07/24/18 07:00 ALT 68 U/L (13-61) H 07/24/18 07:00 Alkaline Phosphatase 64 U/L (45-117) 07/24/18 07:00 Total Protein 6.4 g/dl (6.4-8.2) 07/24/18 07:00 Albumin 3.5 g/dl (3.4-5.0) 07/24/18 07:00 RPR Titer Nonreactive (NONREACTIVE) 07/21/18 07:00 lab noted Assessment: 07/24/18 13:46 mild alcohol withdrawal sx Plan: continue detox
[2018-07-24] MEDS: MAG HYDROX/AL HYDROX/SIMETH 30 ML UNIT-DOSE CUP PO PRN ×2 (17:18→23:25)
[2018-07-24] MEDS: HYDROCORTISONE 2.5% TOPICAL CREAM 30 GM TUBE PR SCH (21:00)
[2018-07-24] MEDS: THIAMINE HCL 100 MG TABLET (FP) PO SCH (21:03)
[2018-07-24] MEDS: MELATONIN 5 MG TABLETS PO PRN (23:03)
[2018-07-25] MEDS: chlordiazePOXIDE HCL 10 MG CAPSULE PO SCH (06:32)
[2018-07-25] MEDS: FERROUS SO4 325 MG TABLET (FP) PO SCH (06:32)
--- NOTE | 2018-07-25 09:02 | DS ---
[facility] Detox Discharge Summary Admission Date: 07/21/18 Discharge Date: 07/25/18 - History Present History: Alcohol Dependence Additional Comments: 63 years old male admitted on 07/20/18 for alcohol withdrawal stabilization completed detox regimen aftercare [facility] Pertinent Past History: bring in medication list and lab report to aftercare appointment - Physical Exam Results Vital Signs: Vital Signs Temperature 97.2 F L 07/25/18 06:29 Pulse Rate 62 07/25/18 06:29 Respiratory Rate 18 07/25/18 06:29 Blood Pressure 101/51 L 07/25/18 06:29 O2 Sat by Pulse Oximetry (%) Pertinent Admission Physical Exam Findings: alcohol withdrawal sx Laboratory Last Values WBC 4.2 K/mm3 (4.0-10.0) 07/24/18 07:00 RBC 4.60 M/mm3 (4.00-5.60) 07/24/18 07:00 Hgb 10.7 GM/dL (11.7-16.9) L 07/24/18 07:00 Hct 33.7 % (35.4-49) L 07/24/18 07:00 MCV 73.3 fl (80-96) L 07/24/18 07:00 MCH 23.2 pg (25.7-33.7) L 07/24/18 07:00 MCHC 31.6 g/dl (32.0-35.9) L 07/24/18 07:00 RDW 20.4 % (11.9-15.9) H 07/24/18 07:00 Plt Count 236 K/MM3 (134-434) 07/24/18 07:00 MPV 9.0 fl (7.5-11.1) 07/24/18 07:00 Sodium 144 mmol/L (136-145) 07/24/18 07:00 Potassium 4.0 mmol/L (3.5-5.1) 07/24/18 07:00 Chloride 107 mmol/L (98-107) 07/24/18 07:00 Carbon Dioxide 31 mmol/L (21-32) 07/24/18 07:00 Anion Gap 6 MMOL/L (8-16) L 07/24/18 07:00 BUN 16 mg/dL (7-18) 07/24/18 07:00 Creatinine 1.1 mg/dL (0.55-1.3) 07/24/18 07:00 Creat Clearance w eGFR 68.05 (>60) 07/24/18 07:00 Random Glucose 92 mg/dL (74-106) 07/24/18 07:00 Calcium 8.9 mg/dL (8.5-10.1) 07/24/18 07:00 Total Bilirubin 0.2 mg/dL (0.2-1) 07/24/18 07:00 AST 41 U/L (15-37) H 07/24/18 07:00 ALT 68 U/L (13-61) H 07/24/18 07:00 Alkaline Phosphatase 64 U/L (45-117) 07/24/18 07:00 Total Protein 6.4 g/dl (6.4-8.2) 07/24/18 07:00 Albumin 3.5 g/dl (3.4-5.0) 07/24/18 07:00 RPR Titer Nonreactive (NONREACTIVE) 07/21/18 07:00 lab noted - Treatment Hospital Course: Detox Protocol Followed, Detoxed Safely, Responded well, Discharged Condition Good, Rehab Referral Accepted Patient has Accepted a Rehab Referral to: [facility] - Medication Discharge Medications: Ambulatory Orders Aspirin [ASA -] 81 mg PO DAILY #30 tab.chew 12/13/16 Loratadine [Claritin -] 10 mg PO DAILY #30 tab 12/13/16 Ranitidine [Zantac -] 150 mg PO BID #60 tab 12/13/16 Ferrous Sulfate [Feosol] 325 mg PO AM 07/20/18 Furosemide [Lasix -] 20 mg PO Q2D 07/20/18 Amlodipine Besylate [Norvasc -] 5 mg PO DAILY #14 tablet 07/24/18 Atorvastatin Ca [Lipitor] 40 mg PO DAILY #30 tab 07/24/18 Carvedilol [Coreg -] 12.5 mg PO BID #30 tab 07/24/18 - Diagnosis (1) Alcohol dependence with uncomplicated withdrawal Current Visit: Yes Status: Acute (2) Asthma Current Visit: Yes Status: Chronic Qualifiers: Asthma severity: mild Asthma persistence: intermittent Asthma complication type: with status asthmaticus Qualified Code(s): J45.22 - Mild intermittent asthma with status asthmaticus (3) GERD (gastroesophageal reflux disease) Current Visit: Yes Status: Chronic Qualifiers: Esophagitis presence: without esophagitis Qualified Code(s): K21.9 - Gastro -esophageal reflux disease without esophagitis (4) Hypertension Current Visit: Yes Status: Chronic Qualifiers: Hypertension type: essential hypertension Qualified Code(s): I10 - Essential (primary) hypertension (5) Nicotine dependence Current Visit: Yes Status: Acute Qualifiers: Nicotine product type: cigarettes Substance use status: in withdrawal Qualified Code(s): F17.213 - Nicotine dependence, cigarettes, with withdrawal (6) Substance induced mood disorder Current Visit: Yes Status: Suspected - AMA Did Patient Leave Against Medical Advice: No
[2018-07-25] MEDS: DOCUSATE SODIUM 100 MG CAPSULE (FP) PO SCH (09:45)
[2018-07-25] MEDS: PRENATAL VITAMINS W/ FOLIC ACID TABLET (FP) PO SCH (09:45)
[2018-07-25] MEDS: ATORVASTATIN CA 40 MG TABLET (FP) PO SCH (09:45)
[2018-07-25] MEDS: amLODIPine BESYLATE 5 MG TABLET (FP) PO SCH (09:45)
[2018-07-25] MEDS: RANITIDINE HCL 150 MG TABLET (FP) PO SCH (09:45)
[2018-07-25] MEDS: FUROSEMIDE 20 MG TABLET (FP) PO SCH (09:45)
[2018-07-25] MEDS: ASPIRIN 81 MG CHEWABLE TABLETS PO SCH (09:45)
[2018-07-25] MEDS: CARVEDILOL 12.5 MG TABLET (FP) PO SCH (09:45)
[2018-07-25] MEDS: CLOTRIMAZOLE 1% CREAM 15 GM TUBE TP SCH (09:47)
[2018-07-25] MEDS: ARTIFICIAL TEARS (POLYVINYL ALCOHOL) OPTH DROPS OU SCH ×2 (09:47→13:33)
[2018-07-25 13:31] VITALS: BP 91/62; PULSE 58; TEMP 97.5
== END 2018-07-25 14:04 | disposition home or self-care (01) | DRG 774 ==
LOC: YASAS 20:14 → Y3N 07-21 01:37
PROVIDERS: ADMIT Surgery; ATTEND Surgery
PROC: HZ2ZZZZ Detoxification Services for Substance Abuse Treatment (ICD-10-PCS; principal; 2018-07-21)
DX: F10.230 Alcohol dependence with withdrawal, uncomplicated (principal); F14.20 Cocaine dependence, uncomplicated; F12.20 Cannabis dependence, uncomplicated; F17.213 Nicotine dependence, cigarettes, with withdrawal; F19.24 Other psychoactive substance dependence with psychoactive substance-induced mood disorder; J45.22 Mild intermittent asthma with status asthmaticus; I10 Essential (primary) hypertension; E78.00 Pure hypercholesterolemia, unspecified; K21.9 Gastro-esophageal reflux disease without esophagitis; B35.3 Tinea pedis; K64.9 Unspecified hemorrhoids; Z95.0 Presence of cardiac pacemaker
CPT/HCPCS: 36415; 80053; 85027; 86593; 93005; 93010